=== PATIENT | male | born 1965 | race Caucasian/White ===

== ENCOUNTER 2020-10-24 09:23 | Day surgery (SDC) | payer BC, SELFPAY ==
[2020-10-18 13:22] VITALS: BMI 27.4
--- NOTE | 2020-10-21 10:15 | HO.ANESPROP2 ---
Documented by User: Stefani uGy 10/21/20 10:16 HPI - Anesthesia Eval Consult details Narrative: 54yo M for Colonoscopy PMFSH Past Medical History Medical History (Updated 10/18/20 @ 13:18 by Candice Austin) Anxiety History of diverticulosis History of kidney stones Hx of hiatal hernia Sciatica, unspecified side Family History Family History Father Diabetes Hypertension Mother Depression Paranoid schizophrenia Surgical History Surgical History (Updated 10/18/20 @ 13:17 by Candice Austin) History of appendectomy History of colectomy History of esophagogastroduodenoscopy (EGD) History of inguinal hernia repair Hx of colonoscopy Social History Social History (Updated 08/30/20 @ 09:43 by Lupe Gentile [facility]) Are you a primary rn progressive care unit to a significant other at home: No Do you presently have visiting nurse or other home services: No Alcohol intake: current Alcohol intake frequency: holidays/special occasions only Smoking Status: Former smoker Tobacco Type: Cigarette Smoking Quit Date: > 10 yrs Use of substances other than those prescribed or required for medical reasons: No Advance Directives: No Advance Directives Information Provided: No Advance Directives on File: No Recently lost weight without trying: No Meds Allergies Allergy/AdvReac Type Severity Reaction Status Date / Time gadobutrol [From GADAVIST] AdvReac Mild NAUSEA & Verified 10/18/20 13:22 VOMITING Home Medications Medication Instructions Recorded Confirmed Type hydroxyzine HCl 25 mg tablet 25 mg PO BEDTIME 08/30/20 10/18/20 History meloxicam 1 tab PO DAILY 10/18/20 10/24/20 History multivitamin 1 tab PO DAILY 10/18/20 10/18/20 History omeprazole magnesium [Prilosec OTC] 20 mg PO DAILY PRN 10/18/20 10/18/20 History Exam Exam Date and Time: October 21, 2020 1015 Height,Weight and Vital Signs: Height 5 ft 6 in Weight 77.111 kg Assessment and Plan Assessment Anesthesia Assessment: Chart Reviewed Documented by User: Shannan Kilgore 10/24/20 11:45 PMFSH Past Medical History Medical History (Updated 10/18/20 @ 13:18 by Candice Austin) Anxiety History of diverticulosis History of kidney stones Hx of hiatal hernia Sciatica, unspecified side Family History Family History Father Diabetes Hypertension Mother Depression Paranoid schizophrenia Family history of problems with anesthesia: No Surgical History Surgical History (Updated 10/18/20 @ 13:17 by Candice Austin) History of appendectomy History of colectomy History of esophagogastroduodenoscopy (EGD) History of inguinal hernia repair Hx of colonoscopy History of Problems with Anesthesia: No Social History Social History (Updated 08/30/20 @ 09:43 by Lupe Gentile [facility]) Are you a primary rn progressive care unit to a significant other at home: No Do you presently have visiting nurse or other home services: No Alcohol intake: current Alcohol intake frequency: holidays/special occasions only Smoking Status: Former smoker Tobacco Type: Cigarette Smoking Quit Date: > 10 yrs Use of substances other than those prescribed or required for medical reasons: No Advance Directives: No Advance Directives Information Provided: No Advance Directives on File: No Recently lost weight without trying: No Meds Allergies Allergy/AdvReac Type Severity Reaction Status Date / Time gadobutrol [From GADAVIST] AdvReac Mild NAUSEA & Verified 10/18/20 13:22 VOMITING Home Medications Medication Instructions Recorded Confirmed Type hydroxyzine HCl 25 mg tablet 25 mg PO BEDTIME 08/30/20 10/18/20 History meloxicam 1 tab PO DAILY 10/18/20 10/24/20 History multivitamin 1 tab PO DAILY 10/18/20 10/18/20 History omeprazole magnesium [Prilosec OTC] 20 mg PO DAILY PRN 10/18/20 10/18/20 History Exam Height,Weight and Vital Signs: Vital Signs Temp Pulse Resp BP Pulse Ox 10/24/20 11:26 97 F 77 16 103/64 99 10/24/20 10:18 97.4 F 76 18 136/99 H 100 Airway Mallampati Class: II TM Dist: >3cm Neck ROM: Full Loose/Missing/Broken Teeth: Yes (Bottom left) Heart: RRR Lungs: CTAB Assessment and Plan Assessment Anesthesia Assessment: Anesthesia Plan Discussed and Chart Reviewed Final Anesthetic Review NPO: Yes ASA Class: II Final Preanesthetic Review: No Changes in Pt Med Stat, Meds/Allgs Chart Reviewed, Consent Obtained/Reviewed and Anes Risks/Benef Reviewed Patient Risk: Low Procedure Risk: Low Assessment/Block/Sedation in SS: Assess/Block/Sedation-SS Anesthetic Plan Anesthetic Plan: MAC: Disposition: Standard PACU
[2020-10-24 10:18] VITALS: BP 136/99; PULSE 76; RESP 18; TEMP 36.3; O2SAT 100
[2020-10-24] MEDS: Lactated Ringers 1,000 ML 100 ML IVCONT (10:21)
[2020-10-24 11:26] VITALS: BP 103/64; PULSE 77; RESP 16; TEMP 36.1; O2SAT 99
--- NOTE | 2020-10-24 11:28 | PM.OP ---
Brief Operative Note Date of Service: 10/24/20 Pre-op diagnosis: Screening Post-op diagnosis: other (Diverticulosis, Internal hemorrhoids) Procedure: Colonoscopy to cecum and TI Surgeon: Juan Luis Dominguez Anesthesia: MAC Estimated blood loss (mL): 0 Pathology: none sent Condition: stable Disposition: PACU
[2020-10-24 11:41] VITALS: BP 113/74; PULSE 64; RESP 16; TEMP 36.1; O2SAT 99
--- NOTE | 2020-10-24 11:46 | OP_ITS ---
SURGEON: Juan Luis Dominguez MD INDICATIONS: The patient presents for evaluation of colorectal cancer screening, family history of colon cancer. Full consent has been obtained from him for this, including risks of bleeding and perforation. PREOPERATIVE DIAGNOSIS: POSTOPERATIVE DIAGNOSIS: PROCEDURE PERFORMED: Colonoscopy to cecum and terminal ileum. ESTIMATED BLOOD LOSS: COMPLICATIONS: ANESTHESIA: Monitored anesthesia care. ASSISTANTS: SPECIMENS: PREOPERATIVE DIAGNOSES: Colorectal cancer screening and family history of colon cancer. POSTOPERATIVE DIAGNOSES: Colorectal cancer screening and family history of colon cancer, diverticulosis and small internal hemorrhoids. DESCRIPTION OF PROCEDURE: The patient was placed in the left lateral decubitus position. The digital rectal exam revealed no abnormalities. The Olympus video pediatric colonoscope was entered into the rectum and advanced easily to the cecum. Once in the cecum, I did identify normal-appearing cecal pouch with appendiceal orifice and a normal-appearing ileocecal valve. The terminal ileum was cannulated and appeared normal. The scope was withdrawn back in the colon. The entire cecum and ileocecal valve appeared normal. The scope was slowly withdrawn assessing all mucosal surfaces carefully. Preparation was excellent. I did not visualize any sign of polyps, colitis, nor angiodysplasia. There were occasional diverticula noted in the ascending and transverse colon. The anastomosis from his previous surgery was seen at 20 cm and appeared normal. In the rectum, scope was retroflexed visualizing small internal hemorrhoids, but no other pathology. The rectal mucosa appeared normal. Scope was straightened and withdrawn from the patient. He tolerated the procedure well and was returned to the recovery area in stable condition. IMPRESSION: 1. Mild diverticulosis. 2. Normal anastomosis. 3. Small internal hemorrhoids. PLAN: Given the patient's family history of his brother having had colon cancer in his 50s, I would recommend a repeat colonoscopy in 5 years. He will otherwise see me on a p.r.n. basis. MD AGUSTÍN Correia/JAZMÍN / [id number]
--- NOTE | 2020-10-24 12:15 | HO.POSTANES ---
Post Anesthesia Evaluation Post Anesthesia Evaluation Vital Signs: Vital Signs Temp Pulse Resp BP Pulse Ox 10/24/20 11:41 97 F 64 16 113/74 99 10/24/20 11:26 97 F 77 16 103/64 99 10/24/20 10:18 97.4 F 76 18 136/99 H 100 Anesthesia: Monitored Mental Status: Awake Pain Control: Satisfactory Nausea/Vomiting: None Hydration: Adequate Anesthesia-Related Issues: No Anes. Related Issues
== END 2020-10-24 12:30 | disposition home or self-care (01) ==
PROVIDERS: PCP Internal Medicine; Visit Provider Internal Medicine
PROC: 0DJD8ZZ Inspection of Lower Intestinal Tract, Via Natural or Artificial Opening Endoscopic (ICD-10-PCS; CPT 45378; principal; 2020-10-24 10:40)
DX: Z12.11 Encounter for screening for malignant neoplasm of colon (principal); Z80.0 Family history of malignant neoplasm of digestive organs; K57.30 Diverticulosis of large intestine without perforation or abscess without bleeding; K64.8 Other hemorrhoids; K21.9 Gastro-esophageal reflux disease without esophagitis; Z87.19 Personal history of other diseases of the digestive system; Z90.49 Acquired absence of other specified parts of digestive tract; Z98.0 Intestinal bypass and anastomosis status; Z79.899 Other long term (current) drug therapy; Z87.891 Personal history of nicotine dependence; Z88.8 Allergy status to other drugs, medicaments and biological substances
CPT/HCPCS: 45378

== ENCOUNTER 2021-05-12 07:57 | Outpatient (REF) | payer BC, SELFPAY ==
[2021-05-12 08:35] LABS: MANUAL DIFF FLAG NO
[2021-05-12 08:43] LABS: Basophils Percent Auto 0.6 % (0-2); Eosinophils Absolute Auto 0.2 X10*3/uL (0.0-0.4); Eosinophils Percent Auto 3.1 % (0-4); Hematocrit 38.3 % (42-52); Hemoglobin 13.1 g/dl (14.0-18.0); Imm Gran Abs Auto 0.01 X10*3/uL (0.00-0.03); Imm Gran Pct Auto 0.1 % (0.0-0.4); Immature Retic Fraction 12.7 % (2.3-13.4); Lymphocytes Absolute Auto 2.7 X10*3/uL (1.2-4.9); Lymphocytes Percent Auto 39.5 % (20-40); Mean Corpuscular HGB Conc 34.2 g/dl (31.0-36.0); Mean Corpuscular Hemoglobin 29.3 pg (27.0-33.0); Mean Corpuscular Volume 85.7 fL (80-98); Monocytes Absolute Auto 0.6 X10*3/uL (0.1-1.2); Monocytes Percent Auto 8.3 % (2-11); Neutrophils Absolute Auto 3.3 X10*3/uL (2.0-8.3); Neutrophils Percent Auto 48.4 % (45-73); Platelet Count 240 X10*3/uL (160-400); Red Blood Count 4.47 X10*6/uL (4.60-5.80); Red Cell Distribution Width 12.6 % (11.0-16.0); Retic HGB Equivalent 34.3 pg (30.0-35.0); Reticulocyte Percent 1.7 % (0.5-1.8); Reticulocytes Absolute 0.074 X10*6/uL (0.026-0.095); White Blood Count 6.7 X10*3/uL (4.8-10.8)
[2021-05-12 09:18] LABS: Alanine Aminotransferase 25 U/L (0-40); Albumin Level 4.3 g/dL (3.5-5.0); Alkaline Phosphatase 57 U/L (39-117); Anion Gap 11 (12-20); Aspartate Amino Transferase 20 U/L (5-37); Bilirubin Total 0.9 mg/dL (0.0-1.0); Blood Urea Nitrogen 15 mg/dL (9-16); Carbon Dioxide 25 mmol/L (22-29); Chloride 108 mmol/L (96-108); Cholesterol 139 mg/dL; Estimated Glomerular Filt Rate > 60; Glucose Random 97 mg/dL (60-115); HDL Cholesterol 42 mg/dL; Iron 100 mcg/dL (45-160); LDL Cholesterol Calculated 78 mg/dl; Potassium 4.4 mmol/L (3.3-5.1); Sodium 140 mmol/L (135-145); Total Protein 6.7 g/dL (6.5-8.0); Triglycerides 98 mg/dL
[2021-05-12 09:27] LABS: Percent Iron Saturation 35 % (15-50); Total Iron Binding Capacity 289 mcg/dL (228-428); Unsaturated Iron Binding 189 ug/dL
[2021-05-12 09:41] LABS: Ferritin 264 ng/mL (20-250); Free T4 (Free Thyroxine) 0.84 ng/dL (0.71-1.85); Prostate Specific Antigen Scr 0.44 ng/mL (<0.05-4.0); Thyroid Stimulating Hormone 1.11 uIU/mL (0.32-4.0)
[2021-05-13 14:54] LABS: Folate 17.1 ng/mL (> or = 4.0); Vitamin B12 423 pg/mL (200-900)
== END 2021-05-12 07:58 | disposition home or self-care (01) ==
LOC: HO.LAB 07:57
PROVIDERS: PCP Internal Medicine; Visit Provider Internal Medicine
DX: F41.1 Generalized anxiety disorder (principal); E78.00 Pure hypercholesterolemia, unspecified; Z12.5 Encounter for screening for malignant neoplasm of prostate
CPT/HCPCS: 36415; 80053; 80061; 82607; 82728; 82746; 83540; 84153; 84439; 84443; 85025; 85045

== ENCOUNTER 2022-02-23 09:58 | Outpatient (REF) | payer BC, SELFPAY ==
--- NOTE | ~2022-02-23 | XR_ITS ---
EXAMINATION: XR CHEST AND LEFT RIBS CLINICAL INFORMATION: Localized swelling, mass and lump left upper limb. COMPARISON: Chest 07/22/2016. TECHNIQUE: 3 views of the left ribs were obtained. FINDINGS: The lungs are well-expanded and clear of acute process. The heart size and pulmonary vascularity is normal. Multiple views left ribs reveal no visible fracture or bony abnormality. The soft tissues are normal. XR/XR ribs LT min 3V w CXR1V IMPRESSION: Unremarkable chest exam. Unremarkable left rib series. No visible acute fracture or bony abnormality.
== END 2022-02-23 09:59 | disposition home or self-care (01) ==
LOC: HO.XRAY 09:58
PROVIDERS: PCP Internal Medicine; Visit Provider Internal Medicine
DX: R22.32 Localized swelling, mass and lump, left upper limb (principal)
CPT/HCPCS: 71101

== ENCOUNTER 2022-03-13 13:44 | Outpatient (REF) | payer BC, SELFPAY ==
--- NOTE | ~2022-03-13 | US_ITS ---
EXAMINATION: US EXTREMITY, NON-VASCULAR. CLINICAL INFORMATION: Localized swelling, mass and lump, left upper limb. Status post Covid booster chart. COMPARISON: None TECHNIQUE: Limited ultrasound imaging through the left upper extremity was performed. FINDINGS: There are multiple small left axillary lymph nodes seen with slightly thickened cortex. The measurements are suboptimal however, 1 of the 2 lymph nodes measures 1.6 x 1.1 x 2.0 cm and a 2nd lymph node measures 1.4 x 0.4 x 2.8 cm. The soft tissues are normal. US/US extremity nonvascular IMPRESSION: Slightly prominent left axillary lymph nodes with thickened cortex is seen. They are not atypical in appearance however, typical appearance of lymph nodes have been distorted due to thickened cortex. Recommend follow-up in 6 weeks to 3 months.
== END 2022-03-13 13:45 | disposition home or self-care (01) ==
LOC: HO.US 13:44
PROVIDERS: PCP Internal Medicine; Visit Provider Internal Medicine
DX: R22.32 Localized swelling, mass and lump, left upper limb (principal)
CPT/HCPCS: 76882

== ENCOUNTER 2022-06-14 08:43 | Outpatient (REF) | payer BC, SELFPAY ==
--- NOTE | ~2022-06-14 | US_ITS ---
EXAMINATION: US EXTREMITY NON-VASCULAR CLINICAL INFORMATION: Left axillary mass palpated by the patient. COMPARISON: None TECHNIQUE: Limited ultrasound imaging through the left axilla was performed. FINDINGS: There is a linear hypoechoic area in the left axilla without any fatty hilum or increased vascularity. Similar findings are seen in the right axilla with a linear hypoechoic area. There are no lymph nodes seen at this time in either axillae. US/US extremity nonvascular IMPRESSION: Hypoechoic area in the left axilla corresponding to the palpable area is likely a thick scar or thick soft tissue. Similar findings are seen in the right axilla. No lymph nodes are seen in either axillae.
== END 2022-06-14 08:44 | disposition home or self-care (01) ==
LOC: HO.HMGCX 08:43
PROVIDERS: PCP Internal Medicine; Visit Provider Internal Medicine
DX: R22.32 Localized swelling, mass and lump, left upper limb (principal)
CPT/HCPCS: 76882

== ENCOUNTER 2022-10-11 08:25 | Outpatient (REF) | payer OTHER, SELFPAY ==
[2022-10-11 08:36] LABS: MANUAL DIFF FLAG NO
[2022-10-11 08:59] LABS: Basophils Absolute Auto 0.1 X10*3/uL (0.0-0.2); Basophils Percent Auto 0.7 % (0-2); Eosinophils Absolute Auto 0.1 X10*3/uL (0.0-0.4); Eosinophils Percent Auto 1.5 % (0-4); Hemoglobin 13.5 g/dl (14.0-18.0); Imm Gran Abs Auto 0.01 X10*3/uL (0.00-0.03); Imm Gran Pct Auto 0.1 % (0.0-0.4); Immature Retic Fraction 10.4 % (2.3-13.4); Lymphocytes Absolute Auto 2.5 X10*3/uL (1.2-4.9); Mean Corpuscular HGB Conc 33.8 g/dl (31.0-36.0); Mean Corpuscular Hemoglobin 29.5 pg (27.0-33.0); Mean Corpuscular Volume 87.3 fL (80.0-98.0); Mean Platelet Volume 10.6 fL (9.4-12.4); Monocytes Absolute Auto 0.4 X10*3/uL (0.1-1.2); Monocytes Percent Auto 6.4 % (2-11); Neutrophils Absolute Auto 3.6 x10*3/uL (2.0-8.3); Neutrophils Percent Auto 53.3 % (45-73); Platelet Count 273 X10*3/uL (160-400); Red Blood Count 4.58 X10*6/uL (4.60-5.80); Red Cell Distribution Width 12.7 % (11.0-16.0); Retic HGB Equivalent 34.4 pg (30.0-35.0); Reticulocyte Percent 1.4 % (0.5-1.8); Reticulocytes Absolute 0.065 X10*6/uL (0.026-0.095); White Blood Count 6.7 X10*3/uL (4.8-10.8)
[2022-10-11 09:19] LABS: Anion Gap 12 (12-20)
[2022-10-11 09:20] LABS: Alanine Aminotransferase 25 U/L (0-40); Albumin Level 4.3 g/dL (3.5-5.0); Alkaline Phosphatase 57 U/L (39-117); Aspartate Amino Transferase 18 U/L (5-37); Bilirubin Total 0.6 mg/dL (0.0-1.0); Blood Urea Nitrogen 15 mg/dL (9-16); Calcium 9.3 mg/dL (8.4-10.2); Carbon Dioxide 27 mmol/L (22-29); Chloride 104 mmol/L (96-108); Cholesterol 173 mg/dL; Estimated Glomerular Filt Rate > 60; Glucose Random 104 mg/dL (60-115); HDL Cholesterol 47 mg/dL; Iron 120 mcg/dL (45-160); LDL Cholesterol Calculated 96 mg/dl; Percent Iron Saturation 40 % (15-50); Sodium 139 mmol/L (135-145); Total Iron Binding Capacity 302 mcg/dL (228-428); Total Protein 6.8 g/dL (6.5-8.0); Triglycerides 152 mg/dL; Unsaturated Iron Binding 182 ug/dL
[2022-10-11 09:46] LABS: Ferritin 343 ng/mL (20-250); Free T4 (Free Thyroxine) 0.92 ng/dL (0.71-1.85); Prostate Specific Antigen Scr 0.54 ng/mL (<0.05-4.0); Thyroid Stimulating Hormone 1.18 uIU/mL (0.32-4.0)
[2022-10-11 09:51] LABS: Folate 14.3 ng/mL (> or = 4.0); Vitamin B12 550 pg/mL (200-900)
[2022-10-17 17:43] LABS: Testosterone, Total 399 ng/dL (250-1100)
== END 2022-10-11 08:26 | disposition home or self-care (01) ==
LOC: HO.LAB 08:25
PROVIDERS: PCP Internal Medicine; Visit Provider Internal Medicine
DX: Z12.5 Encounter for screening for malignant neoplasm of prostate (principal); E78.00 Pure hypercholesterolemia, unspecified; K21.9 Gastro-esophageal reflux disease without esophagitis; D64.9 Anemia, unspecified
CPT/HCPCS: 36415; 80053; 80061; 82607; 82728; 82746; 83540; 84153; 84403; 84439; 84443; 85025; 85045

== ENCOUNTER 2023-08-05 16:35 | Outpatient (AMB) | payer OTHER, SELFPAY ==
[2023-08-05 16:44] VITALS: BP 136/74; PULSE 70; O2SAT 98; BMI 28.6
--- NOTE | 2023-08-05 16:44 | MHC.PC.OV ---
Vital Signs 08/05/23 16:44 Height 5 ft 6 in Weight 177 lb BMI 28.6 BP 136/74 Blood Pressure Location Lt brachial Position Sitting Pulse 70 Pulse Source Pulse Oximeter Pulse Oximetry (%) 98 Oxygen Delivery Method Room Air Intake Visit Reasons: Blood pressure elevation,impaired glucosetolerance Allergies gadobutrol [From GADAVIST] Adverse Reaction (Mild, Verified 01/28/23 16:43) NAUSEA & VOMITING Tobacco use date assessed: 10/31/22 Dental Screening Dental Screen Date: 08/05/23 Did you have a dental visit in the last 12 months?: Yes Did you have a dental problem in the last 6 months where you did not have access to dental care?: No Was dental information given to patient?: Patient has dentist HPI Blood pressure elevation,impaired glucosetolerance HPI Details 57-year-old overweight male with a history of generalized anxiety disorder GERD anemia last seen in January 2023 having an elevated blood pressure and has was advised to follow-up today patient. BP has been good 136/70 PFSH Medical History Hx of hiatal hernia History of diverticulosis History of kidney stones Anxiety Sciatica, unspecified side Surgical History Hx of colonoscopy History of esophagogastroduodenoscopy (EGD) History of colectomy History of inguinal hernia repair History of appendectomy Family History Father Diabetes Hypertension Mother Depression Paranoid schizophrenia Mental health disorder Brother Colon cancer, Onset Age: 56 Other Substance use disorder Social History Housing: House Are you a primary critical care clinical nurse specialist to a significant other at home: No Do you presently have visiting nurse or other home services: No Alcohol intake: current Alcohol intake frequency: holidays/special occasions only Patient Tobacco Use Status: Former Tobacco user Tobacco use type: Cigarette Years Smoked: stopped 1999 e-Cigarette/Vaping Use: Never Used Second Hand Smoke Exposure: No service: No Current occupational status: employed Current occupational exposures/hazards: No Cognitive needs: No Hearing needs: No Vision needs: Yes (Glasses) Questionnaire PHQ-9 Over the last 2 weeks, how often have you been bothered by any of the following problems? 1. Little interest or pleasure in doing things: not at all 2. Feeling down, depressed, or hopeless: not at all 3. Trouble falling or staying asleep, or sleeping too much: not at all 4. Feeling tired or having little energy: not at all 5. Poor appetite or overeating: not at all 6. Feeling bad about yourself - or that you are a failure or have let yourself or your family down: not at all 7. Trouble concentrating on things, such as reading the newspaper or watching television: not at all 8. Moving or speaking so slowly that other people could have noticed. Or the opposite - being so fidgety or restless that you have been moving around a lot more than usual: not at all 9. Thoughts that you would be better off or of hurting yourself in some way: not at all Total score: 0 Depression Screening Interpretation: Negative Depression Screening Done: Yes Source: Developed by Drs. Juan Luis Melton, Varghese Zacarias and colleagues, with an educational anu from [employer]. Thrive Questionnaire Date Thrive assessed: 10/31/22 AUDIT C Alcohol Use Questionnaire (AUDIT-C) 1. How often do you have a drink containing alcohol?: Monthly or less 2. How many drinks containing alcohol do you have on a typical day when you are drinking?: 1 or 2 3. How often do you have six or more drinks on one occasion?: Never Total Score: 1 ELISSA-7 AMB Questionnaire ELISSA-7 Date ELISSA - 7 assessed: 10/31/22 Source: Developed by Drs. Juan Luis Melton, Varghese Zacarias and colleagues, with an educational anu from [employer]. Physical exam (Primary Care) Vital Signs: Oxygen Delivery Method Room Air 08/05/23 16:44 Tobacco/Smoking Status: Tobacco use Status Tobacco use date assessed 10/31/22 08/05/23 16:46 Patient Tobacco Use Status Former Tobacco user 08/05/23 16:46 Tobacco use type Cigarette 08/05/23 16:46 e-Cigarette/Vaping Use Never Used 08/05/23 16:46 PHQ-9: PHQ-9 Score PHQ-9: Total score 0 11/06/23 16:46 Depression Screening Interpretation: Negative Thrive Assessment: Date of Thrive Assessment Date Thrive assessed 10/31/22 08/05/23 16:46 Const General: alert; No acute distress Eyes Conjunctivae: conjunctivae normal Resp Auscultation: clear to auscultation bilaterally Cardio Rate: regular rate Rhythm: regular rhythm GI Inspection: Yes normal to inspection Extrem General: Yes normal to inspection and No edema Assessment and Plan Assessment & Plan (1) ELISSA (generalized anxiety disorder): Comment: decline counselling 01/2022 Code(s): F41.1 - Generalized anxiety disorder Plan: Continue with present medication (2) GERD (gastroesophageal reflux disease): Code(s): K21.9 - Gastro-esophageal reflux disease without esophagitis Plan: Avoid the foods that causes that usually spicy foods, tomato products, juices, coffee, soda and foods that your sensitive to. After eating do not lie down, allow 3-4 hours before in lie down. And keep the head of bed above 30 degrees to avoid the acid from going up. (3) Overweight (BMI 25.0-29.9): Code(s): E66.3 - Overweight Plan: Diet and exercise (4) Blood pressure elevated without history of HTN: Code(s): R03.0 - Elevated blood-pressure reading, without diagnosis of hypertension (5) Impaired fasting blood sugar: Code(s): R73.01 - Impaired fasting glucose Plan: Decrease the amount of carbohydrate intake, pasta, bread, rice and potatoes are all sugar and that is aside from all the sweet stuff, remember that fruits are good but they are Sweet also. Orders: Orders Complete Blood Count Auto Diff 2 Months F41.1 - Generalized anxiety disorder Comprehensive Met. Panel 2 Months F41.1 - Generalized anxiety disorder Hemoglobin A1c 2 Months R73.01 - Impaired fasting glucose Free T4 (Free Thyroxine) 2 Months F41.1 - Generalized anxiety disorder Thyroid Stimulating Hormone 2 Months F41.1 - Generalized anxiety disorder Vitamin B12 and Folate 2 Months F41.1 - Generalized anxiety disorder Lipid Panel 2 Months E78.00 - Pure hypercholesterolemia, unspecified, F41.1 - Generalized anxiety disorder Prostate Specific Antigen Scr 2 Months F41.1 - Generalized anxiety disorder Coding Level of Care Code Est Pt Level 4 (62215) Diagnoses ELISSA (generalized anxiety disorder) F41.1 GERD (gastroesophageal reflux disease) K21.9 Overweight (BMI 25.0-29.9) E66.3 Blood pressure elevated without history of HTN R03.0 Impaired fasting blood sugar R73.01 Additional Codes PHQ-9 - 88842 - PHQ-9 Billing: ([id number])
== END 2023-08-05 17:46 | disposition home or self-care (01) ==
PROVIDERS: Visit Provider Internal Medicine
DX: F41.1 Generalized anxiety disorder (principal); K21.9 Gastro-esophageal reflux disease without esophagitis; E66.3 Overweight; R03.0 Elevated blood-pressure reading, without diagnosis of hypertension; R73.01 Impaired fasting glucose
CPT/HCPCS: 99214

== ENCOUNTER 2023-09-21 07:52 | Outpatient (REF) | payer OTHER, SELFPAY ==
[2023-09-21 08:02] LABS: MANUAL DIFF FLAG NO
[2023-09-21 09:16] LABS: Basophils Absolute Auto 0.1 X10*3/uL (0.0-0.2); Basophils Percent Auto 0.7 % (0-2); Eosinophils Absolute Auto 0.2 X10*3/uL (0.0-0.4); Eosinophils Percent Auto 2.9 % (0-4); Hematocrit 39.4 % (42.0-52.0); Hemoglobin 13.6 g/dl (14.0-18.0); Imm Gran Abs Auto 0.01 X10*3/uL (0.00-0.03); Imm Gran Pct Auto 0.1 % (0.0-0.4); Lymphocytes Absolute Auto 3.2 X10*3/uL (1.2-4.9); Lymphocytes Percent Auto 43.8 % (20-40); Mean Corpuscular HGB Conc 34.5 g/dl (31.0-36.0); Mean Corpuscular Hemoglobin 29.5 pg (27.0-33.0); Mean Corpuscular Volume 85.5 fL (80.0-98.0); Mean Platelet Volume 10.6 fL (9.4-12.4); Monocytes Absolute Auto 0.6 X10*3/uL (0.1-1.2); Monocytes Percent Auto 7.6 % (2-11); Neutrophils Absolute Auto 3.2 x10*3/uL (2.0-8.3); Neutrophils Percent Auto 44.9 % (45-73); Platelet Count 296 X10*3/uL (160-400); Red Blood Count 4.61 X10*6/uL (4.60-5.80); Red Cell Distribution Width 12.6 % (11.0-16.0); White Blood Count 7.2 X10*3/uL (4.8-10.8)
[2023-09-21 09:21] LABS: Estimated Average Glucose 111 mg/dL; Hemoglobin A1c % 5.5 % (<6.0)
[2023-09-21 09:44] LABS: Alanine Aminotransferase 24 U/L (0-40); Albumin Level 4.2 g/dL (3.5-5.0); Alkaline Phosphatase 61 U/L (39-117); Anion Gap 12 (12-20); Aspartate Amino Transferase 25 U/L (5-37); Bilirubin Total 0.4 mg/dL (0.0-1.0); Blood Urea Nitrogen 16 mg/dL (9-16); Calcium 9.1 mg/dL (8.4-10.2); Carbon Dioxide 25 mmol/L (22-29); Chloride 107 mmol/L (96-108); Cholesterol 155 mg/dL (<200); Estimated Glomerular Filt Rate > 60; Glucose Random 99 mg/dL (60-115); HDL Cholesterol 40 mg/dL (>40); LDL Cholesterol Calculated 82 mg/dL (<100); Sodium 140 mmol/L (135-145); Total Protein 7.2 g/dL (6.5-8.0); Triglycerides 166 mg/dL (<150)
[2023-09-21 10:02] LABS: Free T4 (Free Thyroxine) 0.82 ng/dL (0.71-1.85); Thyroid Stimulating Hormone 0.65 uIU/mL (0.32-4.0)
[2023-09-21 10:15] LABS: Folate 14.1 ng/mL (> or = 4.0); Prostate Specific Antigen Scr 0.35 ng/mL (<0.05-4.0); Vitamin B12 639 pg/mL (200-900)
== END 2023-09-21 07:53 | disposition home or self-care (01) ==
LOC: HO.LAB 07:52
PROVIDERS: PCP Internal Medicine; Visit Provider Internal Medicine
DX: Z12.5 Encounter for screening for malignant neoplasm of prostate (principal); R73.01 Impaired fasting glucose; E78.00 Pure hypercholesterolemia, unspecified; F41.1 Generalized anxiety disorder
CPT/HCPCS: 36415; 80053; 80061; 82607; 82746; 83036; 84153; 84439; 84443; 85025

== ENCOUNTER 2023-11-11 17:14 | Outpatient (AMB) | payer OTHER, SELFPAY ==
[2023-11-11 17:20] VITALS: BP 166/80; BMI 28.4
--- NOTE | 2023-11-11 17:20 | A.OFFPC_ITS ---
Vital Signs 11/11/23 17:20 11/11/23 17:29 Height 5 ft 6 in Weight 176 lb BMI 28.4 BP 166/80 H 150/80 H Blood Pressure Location Lt brachial Lt brachial Position Sitting Sitting Intake Visit Reasons: Annual Exam Intake Note: Patient here for a physical exam Global Recruiter Required: No Accompanied by: Self / Same As Patient Allergies gadobutrol [From GADAVIST] Adverse Reaction (Mild, Verified 11/11/23 17:21) NAUSEA & VOMITING Medication List - Last Reconciled 11/11/23 by Rohan Wynn MD citalopram 5 mg (1/2 x 10 mg) PO DAILY 90 days meloxicam 15 mg PO DAILY 90 days multivitamin 1 tab PO DAILY omeprazole magnesium (Prilosec OTC) 20 mg PO DAILY PRN Tobacco use date assessed: 11/11/23 Dental Screening Dental Screen Date: 11/11/23 Did you have a dental visit in the last 12 months?: Yes Did you have a dental problem in the last 6 months where you did not have access to dental care?: No Was dental information given to patient?: Patient has dentist HPI Annual Exam HPI Details 57-year-old overweight male with a histo ry of impaired glucose tolerance GERD and generalized anxiety disorder last seen in July 2023. At that time noted to have an elevated blood pressure and advised to follow-up. Patient's colonoscopy is up-to-date. [facility] Medical History Hx of hiatal hernia History of diverticulosis History of kidney stones Anxiety Sciatica, unspecified side Surgical History Hx of colonoscopy History of esophagogastroduodenoscopy (EGD) History of colectomy History of inguinal hernia repair History of appendectomy Family History Father Diabetes Hypertension Mother Depression Paranoid schizophrenia Mental health disorder Brother Colon cancer, Onset Age: 56 Other Substance use disorder Social History (Updated 11/11/23 @ 17:31 by Rohan Wynn MD) Housing: House Are you a primary animal caretaker to a significant other at home: No Do you presently have visiting nurse or other home services: No Alcohol intake: current Alcohol intake frequency: holidays/special occasions only Comment: once Q 3 months 2 beers Patient Tobacco Use Status: Former Tobacco user Tobacco use type: Cigarette Years Smoked: stopped 1999 e-Cigarette/Vaping Use: Never Used Second Hand Smoke Exposure: No service: No Current occupational status: employed Current occupational exposures/hazards: No Cognitive needs: No Hearing needs: No Vision needs: Yes (Glasses) Questionnaire PHQ-9 Over the last 2 weeks, how often have you been bothered by any of the following problems? 1. Little interest or pleasure in doing things: not at all 2. Feeling down, depressed, or hopeless: not at all 3. Trouble falling or staying asleep, or sleeping too much: not at all 4. Feeling tired or having little energy: not at all 5. Poor appetite or overeating: not at all 6. Feeling bad about yourself - or that you are a failure or have let yourself or your family down: not at all 7. Trouble concentrating on things, such as reading the newspaper or watching television: not at all 8. Moving or speaking so slowly that other people could have noticed. Or the opposite - being so fidgety or restless that you have been moving around a lot more than usual: not at all 9. Thoughts that you would be better off or of hurting yourself in some way: not at all Total score: 0 Depression Screening Interpretation: Negative Depression Screening Done: Yes Source: Developed by Drs. Juan Luis Melton, Jessica Acosta, Varghese Verma and colleagues, with an educational anu from [employer]. Thrive Questionnaire Date Thrive assessed: 11/11/23 I am a: Patient What is your living situation today?: I have a steady place to live Within the past 12 months, did the food you bought not last and you didn't have the money to get more?: Never true Within the past 12 months, did you worry whether your food would run out before you got money to buy more?: Never true Do you have trouble paying for medicines?: No Do you have trouble getting transportation to medical appointments?: No Do you have trouble paying your heating and electricity bill?: No Do you have trouble taking care of your child, family member or friend?: No Do you have trouble with day-to-day activities such as bathing, preparing meals, shopping, managing finances, etc.?: No Are you currently unemployed and looking for a job?: No Are you interested in more education?: No Please select the resources that you would like help with: None Currently or been in a relationship where the following occur: no concerns reported THRIVE Score: 0 AUDIT C Alcohol Use Questionnaire (AUDIT-C) 1. How often do you have a drink containing alcohol?: Monthly or less 2. How many drinks containing alcohol do you have on a typical day when you are drinking?: 1 or 2 3. How often do you have six or more drinks on one occasion?: Never Total Score: 1 ELISSA-7 AMB Questionnaire ELISSA-7 Date ELISSA - 7 assessed: 11/11/23 Feeling nervous, anxious, or on edge: 0 = Not at all Not being able to stop or control worryin = Not at all Worrying too much about different things: 0 = Not at all Trouble relaxin = Not at all Being so restless that it is hard to sit still: 0 = Not at all Becoming easily annoyed or irritable: 0 = Not at all Feeling afraid as if something awful might happen: 0 = Not at all Total ELISSA-7 score (0-4 normal; 5-9 mild; 10-14 moderate; 15-21 severe): 0 Source: Developed by Drs. Juan Luis Melton, Jessica Acosta, Varghese Verma and colleagues, with an educational anu from [employer]. Review of Systems Const Denies poor appetite and Denies weakness Eyes Denies no additional complaints ENT Reports Normal hearing present, Denies dizziness, Denies nasal congestion, Denies tinnitus and Denies sore throat Card Denies chest pain, Denies syncope, Denies rapid heart rate and Denies dyspnea Resp Denies cough and Denies dyspnea GI Denies change in stool character, Reports constipation, Denies diarrhea, Denies nausea and Denies vomiting Denies dysuria and Denies urinary frequency Neuro Reports Normal hearing present, Denies confusion, Denies dizziness, Denies syncope and Denies weakness Psych Denies confusion Physical exam (Primary Care) Vital Signs: Last Vital Signs BP 166/80 H 11/11/23 17:20 BMI result Body Mass Index 28.4 Tobacco/Smoking Status: Tobacco use Status Tobacco use date assessed 10/31/22 11/11/23 17:20 Patient Tobacco Use Status Former Tobacco user 11/11/23 17:20 Tobacco use type Cigarette 11/11/23 17:20 e-Cigarette/Vaping Use Never Used 11/11/23 17:20 Depression Screening Interpretation: Negative Thrive Assessment: Date of Thrive Assessment Date Thrive assessed 10/31/22 11/11/23 17:20 Currently or been in a relationship where the following occur: no concerns reported Const General: No confusion Orientation/consciousness: No confusion HENMT Head: Yes normocephalic Ears: external ears normal and TM's normal bilaterally Face and sinus: Yes normal facial exam Mouth: moist mucous membranes Throat: Yes tonsils normal Eyes Conjunctivae: conjunctivae normal Pupils: Equal, round and reactive pupils present and Pupil accommodation reflex normal Direct Ophthalmoscopy: normal light reflex Neck Neck: No lymphadenopathy Thyroid: Thyroid normal Chest Chest palpation & inspection: normal inspection of the chest Resp Effort & Inspection: normal respiratory effort and no audible wheezes Auscultation: clear to auscultation bilaterally, no crackles, no wheezes and lung sounds not diminished Cardio Rate: regular rate Rhythm: regular rhythm Peripheral pulses: radial pulses present and dorsalis pedis present GI Other: guaiac negative prostate N Palpation (GI): no masses Auscultation: normal bowel sounds and normoactive bowel sounds Male General Exam: Yes normal external exam Skin General skin exam: no rashes or lesions noted Rashes: no rashes Neuro General: No confusion Cranial nerves: Yes Equal, round and reactive pupils present and Yes Normal hearing present Cognition (Neuro): normal cognition Gait exam (Neuro): Normal gait present Motor exam (neuro): 5/5 motor strength present throughout Deep tendon reflexes (DTR's): Right brachioradialis reflex intensity grade: 2+, Left brachioradialis reflex intensity grade: 2+, Right patellar reflex intensity grade: 2+ and Left patellar reflex intensity grade: 2+ Extrem General: No edema Assessment and Plan Assessment & Plan (1) Annual physical exam: Code(s): Z00.00 - Encounter for general adult medical examination without abnormal findings (2) Overweight (BMI 25.0-29.9): Code(s): E66.3 - Overweight Plan: Diet and exercise (3) GERD (gastroesophageal reflux disease): Code(s): K21.9 - Gastro-esophageal reflux disease without esophagitis Plan: Avoid the foods that causes that usually spicy foods, tomato products, juices, coffee, soda and foods that your sensitive to. After eating do not lie down, allow 3-4 hours before in lie down. And keep the head of bed above 30 degrees to avoid the acid from going up. (4) Blood pressure elevated without history of HTN: Code(s): R03.0 - Elevated blood-pressure reading, without diagnosis of hypertension Plan: Concern about the elevated blood pressure. Advised continue to monitor (5) Impaired fasting blood sugar: Code(s): R73.01 - Impaired fasting glucose Plan: Decrease the amount of carbohydrate intake, pasta, bread, rice and potatoes are all sugar and that is aside from all the sweet stuff, remember that fruits are good but they are Sweet also. (6) ELISSA (generalized anxiety disorder): Comment: decline counselling 01/2022 Code(s): F41.1 - Generalized anxiety disorder Plan: Continue with therapy presently. (7) Anemia: Comment: Hematology 2013 Low Testosterone Code(s): D64.9 - Anemia, unspecified Plan: Continue to monitor Coding Level of Care Code Est Pt Prev Care 40-64y(30139) Diagnoses Annual physical exam Z00.00 Overweight (BMI 25.0-29.9) E66.3 GERD (gastroesophageal reflux disease) K21.9 Blood pressure elevated without history of HTN R03.0 Impaired fasting blood sugar R73.01 ELISSA (generalized anxiety disorder) F41.1 Anemia D64.9 Additional Codes PHQ-9 - 72063 - PHQ-9 Billing: ([id number])
[2023-11-11 17:29] VITALS: BP 150/80
== END 2023-11-11 17:51 | disposition home or self-care (01) ==
PROVIDERS: Visit Provider Internal Medicine
DX: Z00.00 Encounter for general adult medical examination without abnormal findings (principal); E66.3 Overweight; K21.9 Gastro-esophageal reflux disease without esophagitis; R03.0 Elevated blood-pressure reading, without diagnosis of hypertension; R73.01 Impaired fasting glucose; F41.1 Generalized anxiety disorder; D64.9 Anemia, unspecified
CPT/HCPCS: 99396

== ENCOUNTER 2024-05-11 15:51 | Outpatient (AMB) | payer OTHER, SELFPAY ==
[2024-05-11 15:52] VITALS: BP 142/78; PULSE 70; O2SAT 98; BMI 28.9
--- NOTE | 2024-05-11 15:52 | A.OFFPC_ITS ---
Vital Signs 05/11/24 15:52 05/11/24 16:05 Height 5 ft 6 in Weight 81.193 kg BMI 28.9 BP 142/78 H 124/60 Blood Pressure Location Lt brachial Lt brachial Position Sitting Sitting Pulse 70 Pulse Source Pulse Oximeter Pulse Oximetry (%) 98 Oxygen Delivery Method Room Air Intake Visit Reasons: ELISSA/ tetanus Allergies gadobutrol [From GADAVIST] Adverse Reaction (Mild, Verified 05/11/24 15:52) NAUSEA & VOMITING Tobacco use date assessed: 11/11/23 Dental Screening Dental Screen Date: 11/11/23 HPI ELISSA/ tetanus HPI Details 58-year-old overweight male with GERD im paired glucose tolerance generalized anxiety disorder last seen in October heavy an elevated blood pressure. Patient is here for follow-up. Up-to-date with colonoscopy September 2020 [facility] Medical History Hx of hiatal hernia History of diverticulosis History of kidney stones Anxiety Sciatica, unspecified side Surgical History Hx of colonoscopy History of esophagogastroduodenoscopy (EGD) History of colectomy History of inguinal hernia repair History of appendectomy Family History Father Diabetes Hypertension Mother Depression Paranoid schizophrenia Mental health disorder Brother Colon cancer, Onset Age: 56 Other Substance use disorder Social History (Updated 11/11/23 @ 17:31 by Rohan Wynn MD) Housing: House Are you a primary care connector to a significant other at home: No Do you presently have visiting nurse or other home services: No Alcohol intake: current Alcohol intake frequency: holidays/special occasions only Comment: once Q 3 months 2 beers Patient Tobacco Use Status: Former Tobacco user Tobacco use type: Cigarette Years Smoked: stopped 1999 e-Cigarette/Vaping Use: Never Used Second Hand Smoke Exposure: No service: No Current occupational status: employed Current occupational exposures/hazards: No Cognitive needs: No Hearing needs: No Vision needs: Yes (Glasses) Questionnaire PHQ-9 Over the last 2 weeks, how often have you been bothered by any of the following problems? 1. Little interest or pleasure in doing things: not at all 2. Feeling down, depressed, or hopeless: not at all 3. Trouble falling or staying asleep, or sleeping too much: not at all 4. Feeling tired or having little energy: not at all 5. Poor appetite or overeating: not at all 6. Feeling bad about yourself - or that you are a failure or have let yourself or your family down: not at all 7. Trouble concentrating on things, such as reading the newspaper or watching television: not at all 8. Moving or speaking so slowly that other people could have noticed. Or the opposite - being so fidgety or restless that you have been moving around a lot more than usual: not at all 9. Thoughts that you would be better off or of hurting yourself in some way: not at all Total score: 0 Depression Screening Interpretation: Negative Depression Screening Done: Yes Source: Developed by Drs. Juan Luis Melton, Jessica Acosta, Varghese Verma and colleagues, with an educational anu from [employer]. Thrive Questionnaire Date Thrive assessed: 11/11/23 AUDIT C Alcohol Use Questionnaire (AUDIT-C) 1. How often do you have a drink containing alcohol?: Monthly or less 2. How many drinks containing alcohol do you have on a typical day when you are drinking?: 1 or 2 3. How often do you have six or more drinks on one occasion?: Never Total Score: 1 ELISSA-7 AMB Questionnaire ELISSA-7 Date ELISSA - 7 assessed: 11/11/23 Source: Developed by Drs. Juan Luis Melton, Jessica Acosta, Varghese Verma and colleagues, with an educational anu from [employer]. Physical exam (Primary Care) Vital Signs: Last Vital Signs Pulse 70 05/11/24 15:52 BP 124/60 05/11/24 16:05 Pulse Ox 98 05/11/24 15:52 Oxygen Delivery Method Room Air 05/11/24 15:52 BMI result Body Mass Index 28.9 Tobacco/Smoking Status: Tobacco use Status Tobacco use date assessed 11/11/23 05/11/24 15:56 Patient Tobacco Use Status Former Tobacco user 05/11/24 15:56 Tobacco use type Cigarette 05/11/24 15:56 e-Cigarette/Vaping Use Never Used 05/11/24 15:56 PHQ-9: PHQ-9 Score PHQ-9: Total score 0 05/11/24 16:06 Depression Screening Interpretation: Negative Thrive Assessment: Date of Thrive Assessment Date Thrive assessed 11/11/23 05/11/24 15:56 Const General: alert; No acute distress Eyes Conjunctivae: conjunctivae normal Resp Auscultation: clear to auscultation bilaterally Cardio Rate: regular rate Rhythm: regular rhythm GI Inspection: Yes normal to inspection Extrem General: Yes normal to inspection and No edema Immunizations Boostrix Tdap 2.5 Lf unit-8 mcg-5 Lf/0.5 mL intramuscular syringe Performing Provider: Rohan Wynn MD Performing Location: [facility] Administered by: LEANA Felix on 05/11/24 16:16 Dose Route Admin Location Dispensed Lot Number Expiration Date NDC Ventilating Expert 0.5 mL IM Left Deltoid 0.5 mL [id number] 05/16/26 21850-004-23 [employer] VIS Given Date VIS Provided VIS Publication Date 05/11/24 Single Vaccine 21 Eligibility Eligibility Date Funding Source Not [facility] Eligible 05/11/24 Private Assessment and Plan Assessment & Plan (1) Blood pressure elevated without history of HTN: Code(s): R03.0 - Elevated blood-pressure reading, without diagnosis of hypertension Plan: Continue to monitor blood pressure. BP is good , low salt diet (2) Impaired fasting blood sugar: Code(s): R73.01 - Impaired fasting glucose Plan: Decrease the amount of carbohydrate intake, pasta, bread, rice and potatoes are all sugar and that is aside from all the sweet stuff, remember that fruits are good but they are Sweet also. (3) Overweight (BMI 25.0-29.9): Code(s): E66.3 - Overweight Plan: Diet and exercise (4) GERD (gastroesophageal reflux disease): Code(s): K21.9 - Gastro-esophageal reflux disease without esophagitis Plan: Avoid the foods that causes that usually spicy foods, tomato products, juices, coffee, soda and foods that your sensitive to. After eating do not lie down, allow 3-4 hours before in lie down. And keep the head of bed above 30 degrees to avoid the acid from going up. (5) ELISSA (generalized anxiety disorder): Comment: decline counselling 01/2022 Code(s): F41.1 - Generalized anxiety disorder Plan: Continue with citalopram Orders: Orders Comprehensive Met. Panel 6 Months R73.01 - Impaired fasting glucose Vitamin B12 and Folate 6 Months R73.01 - Impaired fasting glucose Prostate Specific Antigen Scr 6 Months R73.01 - Impaired fasting glucose Ferritin 6 Months R73.01 - Impaired fasting glucose IRON PROFILE 6 Months R73.01 - Impaired fasting glucose Reticulocyte Count 6 Months R73.01 - Impaired fasting glucose UA w Microscopic 6 Months R73.01 - Impaired fasting glucose TDaP Immunization Today Z23 - Encounter for immunization Hemoglobin A1c 6 Months R73.01 - Impaired fasting glucose Free T4 (Free Thyroxine) 6 Months R73.01 - Impaired fasting glucose Complete Blood Count Auto Diff 6 Months R73.01 - Impaired fasting glucose Lipid Panel 6 Months E78.00 - Pure hypercholesterolemia, unspecified, R73.01 - Impaired fasting glucose Thyroid Stimulating Hormone 6 Months R73.01 - Impaired fasting glucose Medications: New Boostrix Tdap (diphth,pertus(acell),tetanus) 0.5 mL IM ONCE 0.5 mL 0RF NS Z23 - Encounter for immunization Coding Level of Care Code Est Pt Level 4 (83160) Diagnoses Blood pressure elevated without history of HTN R03.0 Impaired fasting blood sugar R73.01 Overweight (BMI 25.0-29.9) E66.3 GERD (gastroesophageal reflux disease) K21.9 ELISSA (generalized anxiety disorder) F41.1 Additional Codes PHQ-9 - 49847 - PHQ-9 Billing: ([id number])
[2024-05-11 16:05] VITALS: BP 124/60
== END 2024-05-11 16:15 | disposition home or self-care (01) ==
PROVIDERS: PCP Internal Medicine; Visit Provider Internal Medicine
DX: R03.0 Elevated blood-pressure reading, without diagnosis of hypertension (principal); R73.01 Impaired fasting glucose; E66.3 Overweight; Z23 Encounter for immunization; K21.9 Gastro-esophageal reflux disease without esophagitis; F41.1 Generalized anxiety disorder
CPT/HCPCS: 90471; 90715; 99214

== ENCOUNTER 2024-09-09 09:13 | Outpatient (AMB) | payer OTHER, SELFPAY ==
--- NOTE | 2024-09-09 09:16 | A.OFFPC_ITS ---
Vital Signs 09/09/24 09:17 Height 5 ft 6 in Weight 181 lb BMI 29.2 BP 140/76 H Blood Pressure Location Lt brachial Position Sitting Pulse 66 Pulse Source Pulse Oximeter Pulse Oximetry (%) 99 Oxygen Delivery Method Room Air Intake Visit Reasons: Lower back pain Intake Note: Patient is here to follow up on Lower back pain on the right side. Telecommunications Operator Required: No Provider Network Analyst: Not Required per policy Accompanied by: Self / Same As Patient Allergies gadobutrol [From [facility]] Adverse Reaction (Mild, Verified 09/09/24 09:17) NAUSEA & VOMITING Tobacco use date assessed: 09/09/24 Dental Screening Dental Screen Date: 11/11/23 [facility], [facility] Medical History Hx of hiatal hernia History of diverticulosis History of kidney stones Anxiety Sciatica, unspecified side Surgical History Hx of colonoscopy History of esophagogastroduodenoscopy (EGD) History of colectomy History of inguinal hernia repair History of appendectomy Family History Father Diabetes Hypertension Mother Depression Paranoid schizophrenia Mental health disorder Brother Colon cancer, Onset Age: 56 Other Substance use disorder Social History Housing: House Are you a primary in home caregiver to a significant other at home: No Do you presently have visiting nurse or other home services: No Alcohol intake: current Alcohol intake frequency: holidays/special occasions only Comment: once Q 3 months 2 beers Patient Tobacco Use Status: Former Tobacco user Tobacco use type: Cigarette Years Smoked: stopped 1999 e-Cigarette/Vaping Use: Never Used Second Hand Smoke Exposure: No service: No Current occupational status: employed Current occupational exposures/hazards: No Cognitive needs: No Hearing needs: No Vision needs: Yes (Glasses) Questionnaire Thrive Questionnaire Date Thrive assessed: 11/11/23 ELISSA-7 AMB Questionnaire ELISSA-7 Date ELISSA - 7 assessed: 11/11/23 Source: Developed by Drs. Juan Luis Melton, Jessica Acosta, Varghese Verma and colleagues, with an educational anu from [employer]. Physical exam (Primary Care) Vital Signs: Last Vital Signs Pulse 66 09/09/24 09:17 BP 140/76 H 09/09/24 09:17 Pulse Ox 99 09/09/24 09:17 Oxygen Delivery Method Room Air 09/09/24 09:17 BMI result Body Mass Index 29.2 Tobacco/Smoking Status: Tobacco use Status Tobacco use date assessed 09/09/24 09/09/24 09:22 Patient Tobacco Use Status Former Tobacco user 09/09/24 09:22 Tobacco use type Cigarette 09/09/24 09:22 e-Cigarette/Vaping Use Never Used 09/09/24 09:22 Thrive Assessment: Date of Thrive Assessment Date Thrive assessed 11/11/23 09/09/24 09:22 Office Procedures Flu Questionnaire Does the patient have a severe egg allergy?: No Does the patient have severe life threatening allergies?: No Does the patient have a fever or illness today?: No Has the patient ever had Guillain-Martin Syndrome?: No Has the patient ever had any past reaction to a flu shot?: No Immunizations Fluarix Triv [id number] (PF) 45 mcg (15 mcg x 3)/0.5 mL IM syringe Performing Provider: Garcia Johns MD [facility] Administered by: LEANA Black on 09/09/24 10:09 Dose Route Admin Location Dispensed Lot Number Expiration Date NDC Professor Of Legal Studies 0.5 mL IM Left Deltoid 0.5 mL [id number] 03/29/25 92830-905-06 [facility] Given Date VIS Provided VIS Publication Date 09/09/24 Single Vaccine 21 Eligibility Eligibility Date Funding Source Not [facility] Eligible 09/09/24 Private Coding Level of Care Code Est Pt Level 4 (41905) Complex EM visit Add On G2211 Diagnoses Low back pain M54.50 Assessment & Plan Assessment & Plan (1) Low back pain: Code(s): M54.50 - Low back pain, unspecified Plan: History of Present Illness The patient is a 58-year-old male presenting with acute low back pain. The pain began on the preceding Saturday, initially described as very mild but subsequently developed into a sharp sensation located on the lower right side. The patient denies any falls or injuries associated with the onset of the pain. He reports difficulty bending forward, such as when tying his shoes, which exacerbates the pain. The patient noted that the pain was severe enough to prevent him from wearing regular shoes, opting instead for slippers, which is atypical for him. He has experienced similar back pain in the past, but it resolved spontaneously, and he cannot recall the exact timeline. Previously, he managed the pain with high-dose ibuprofen and a muscle relaxer. He attempted treatment with meloxicam, approximately 15 mg, but reported no significant relief. The pain has been persistent and intense, prompting his current visit. He denies associated symptoms such as trouble urinating, fevers, or chills. Social History - Employment: Works in building maintenance and machine repairing. - Current functional status: Limited ability to perform activities involving bending due to back pain. Review of Systems - Musculoskeletal: Reports exacerbation of pain with bending forward. - Genitourinary: Denies urinary difficulties. - Constitutional: Denies fevers or chills. Physical Exam General: Cooperative and healthy appearing Nutritional Appearance: Well nourished Orientation/consciousness: Patient oriented x3 Limitations: No limitations Head: Normal to inspection General: Appearance normal, both eyes and all related structures Neck: Normal visual inspection Chest: Normal palpation of entire chest wall Respiratory: Normal respiratory effort Neurology: Patient oriented x3 Results Plan - Acute Low Back Pain: Prescribed an increased dosage of anti-inflammatory medication. Switched from meloxicam 15 mg to a higher dose of 800 mg ibuprofen to be taken three times daily as needed for pain management. - Muscle Spasm: Recommended a muscle relaxant to be taken at bedtime if working, or up to twice daily if not working. Patient was informed and verbally consented to the use of an ambient scribe for clinic note documentation during this visit. Discussion Notes I discussed with the patient that his symptoms are consistent with muscle spasm contributing to acute low back pain. We reviewed the importance of taking the prescribed medication as directed to manage inflammation and muscle tension. I explained the rationales for changing the anti-inflammatory medication to ibuprofen at a higher dose, addressing the limited relief from the previously prescribed meloxicam. The patient consented to the medication plan and agreed to trial the new regimen. I also provided a work note to excuse him from duties today and tomorrow, emphasizing rest and avoiding activities that exacerbate his symptoms. We discussed administering a flu shot, and the patient agreed to receive it during the visit. Anticipatory guidance was given regarding the expected improvement, but I advised returning if symptoms persist or worsen. Patient Instructions - Take ibuprofen 800 mg three times daily for pain relief. - Use muscle relaxant at bedtime if working or up to twice daily if not working. - Rest and avoid activities that aggravate the pain, such as bending forward. - Follow the plan to receive a flu vaccination. - Follow up if pain does not improve or symptoms worsen, or for any new concerning symptoms. Orders: Orders Influenza [id number] Immunization Today Z23 - Encounter for immunization
[2024-09-09 09:17] VITALS: BP 140/76; PULSE 66; O2SAT 99; BMI 29.2
== END 2024-09-09 10:13 | disposition home or self-care (01) ==
PROVIDERS: PCP Internal Medicine; Visit Provider Internal Medicine
DX: Z23 Encounter for immunization (principal); M54.50 Low back pain, unspecified

== ENCOUNTER → 2024-09-09 09:13 | Outpatient (BNVA) | payer OTHER, SELFPAY | PROVIDERS: PCP Internal Medicine; Visit Provider Internal Medicine | DX: M54.50 Low back pain, unspecified (principal); M62.838 Other muscle spasm; Z23 Encounter for immunization | CPT/HCPCS: 90471; 90656 ==

== ENCOUNTER 2024-11-14 07:48 | Outpatient (REF) | payer OTHER, SELFPAY ==
[2024-11-14 08:00] LABS: MANUAL DIFF FLAG NO
[2024-11-14 08:34] LABS: Basophils Percent Auto 0.6 % (0-2); Eosinophils Absolute Auto 0.1 X10*3/uL (0.0-0.4); Eosinophils Percent Auto 1.2 % (0-4); Hematocrit 41.8 % (42.0-52.0); Hemoglobin 14.2 g/dl (14.0-18.0); Imm Gran Abs Auto 0.01 X10*3/uL (0.00-0.03); Imm Gran Pct Auto 0.1 % (0.0-0.4); Immature Retic Fraction 9.5 % (2.3-13.4); Lymphocytes Absolute Auto 2.2 X10*3/uL (1.2-4.9); Lymphocytes Percent Auto 32.1 % (20-40); Mean Corpuscular Hemoglobin 29.2 pg (27.0-33.0); Mean Platelet Volume 10.3 fL (9.4-12.4); Monocytes Absolute Auto 0.6 X10*3/uL (0.1-1.2); Monocytes Percent Auto 9.3 % (2-11); Neutrophils Absolute Auto 3.8 x10*3/uL (2.0-8.3); Neutrophils Percent Auto 56.7 % (45-73); Platelet Count 242 X10*3/uL (160-400); Red Blood Count 4.86 X10*6/uL (4.60-5.80); Red Cell Distribution Width 12.8 % (11.0-16.0); Retic HGB Equivalent 30.5 pg (30.0-35.0); Reticulocytes Absolute 0.047 X10*6/uL (0.026-0.095); White Blood Count 6.8 X10*3/uL (4.8-10.8)
[2024-11-14 08:44] LABS: Estimated Average Glucose 123 mg/dL; Hemoglobin A1C 148.6631 umol/L; Hemoglobin A1c % 5.9 % (<6.0); Total Hemoglobin (HGBA1C) 3613.3655 umol/L
[2024-11-14 09:04] LABS: Bacteria Urine None Seen (None Seen); Hyaline Casts Urine 0-2 /LPF (0-2); WBC Urine 0-5 /HPF (0-5)
[2024-11-14 09:11] LABS: Appearance Urine Clear; Color Urine Yellow; PH 5.5 (5.0-9.0)
[2024-11-14 09:12] LABS: Glucose Urine UA Negative (Negative); Leukocyte Esterase Urine Negative (Negative); Nitrite Urine Negative (Negative); Specific Gravity - Urine > 1.030 (1.005-1.025); UMIC TRIGGER UA YES; Urine Blood Moderate (2+) (Negative); Urine Ketones Trace mg/dL (Negative); Urine Protein Trace mg/dL (Neg-Trace)
[2024-11-14 09:21] LABS: Alanine Aminotransferase 26 U/L (0-40); Albumin Level 4.3 g/dL (3.5-5.0); Alkaline Phosphatase 54 U/L (39-117); Anion Gap 11 (12-20); Aspartate Amino Transferase 28 U/L (5-37); Bilirubin Total 0.4 mg/dL (0.0-1.0); Blood Urea Nitrogen 9 mg/dL (9-16); Calcium 9.1 mg/dL (8.4-10.2); Carbon Dioxide 26 mmol/L (22-29); Chloride 107 mmol/L (96-108); Cholesterol 123 mg/dL (<200); Estimated Glomerular Filt Rate > 60; Glucose Random 109 mg/dL (60-115); HDL Cholesterol 37 mg/dL (>40); Iron 33 mcg/dL (45-160); LDL Cholesterol Calculated 61 mg/dL (<100); Percent Iron Saturation 13 % (15-50); Potassium 4.4 mmol/L (3.3-5.1); Sodium 140 mmol/L (135-145); Total Iron Binding Capacity 246 mcg/dL (228-428); Total Protein 7.8 g/dL (6.5-8.0); Triglycerides 126 mg/dL (<150); Unsaturated Iron Binding 213 ug/dL
[2024-11-14 09:38] LABS: Ferritin 707 ng/mL (20-250); Free T4 (Free Thyroxine) 0.97 ng/dL (0.71-1.85); Thyroid Stimulating Hormone 2.24 uIU/mL (0.32-4.0)
[2024-11-14 09:47] LABS: Folate 14.8 ng/mL (> or = 4.0); Prostate Specific Antigen Scr 0.28 ng/mL (<0.05-4.0); Vitamin B12 447 pg/mL (200-900)
== END 2024-11-14 07:49 | disposition home or self-care (01) ==
LOC: HO.LAB 07:48
PROVIDERS: PCP Internal Medicine; Visit Provider Internal Medicine
DX: R73.01 Impaired fasting glucose (principal); E78.00 Pure hypercholesterolemia, unspecified; Z12.5 Encounter for screening for malignant neoplasm of prostate
CPT/HCPCS: 36415; 80053; 80061; 81001; 82607; 82728; 82746; 83036; 83540; 84153; 84439; 84443; 85025; 85045

== ENCOUNTER 2024-11-16 17:20 | Outpatient (AMB) | payer OTHER, SELFPAY ==
--- NOTE | 2024-11-16 17:28 | A.OFFPC_ITS ---
Vital Signs 11/16/24 17:36 Height 5 ft 6 in Weight 178 lb BMI 28.7 BP 134/80 Blood Pressure Location Lt brachial Position Sitting Pulse 68 Pulse Source Pulse Oximeter Pulse Oximetry (%) 98 Oxygen Delivery Method Room Air Intake Visit Reasons: PE Intake Note: Patient here for a physical exam Stri[employer]pa[employer] Apprentice Required: No Accompanied by: Self / Same As Patient Allergies gadobutrol [From [facility]] Adverse Reaction (Mild, Verified 11/16/24 17:41) NAUSEA & VOMITING Medication List - Last Reconciled 11/16/24 by Rohan Wynn MD multivitamin 1 tab PO DAILY omeprazole magnesium (Prilosec OTC) 20 mg PO DAILY PRN Tobacco use date assessed: 11/16/24 Dental Screening Dental Screen Date: 11/16/24 Did you have a dental visit in the last 12 months?: Yes Did you have a dental problem in the last 6 months where you did not have access to dental care?: No Was dental information given to patient?: Patient has dentist HPI PE HPI Details The patient is a 58-year-old male presenting for a physical examination with concerns about blood pressure and a recent finding of hematuria. The patient has a history of generalized anxiety disorder, managed in the past with citalopram, which he ceased using approximately a year ago. He also has a diagnosis of gastroesophageal reflux disease (GERD), managed with omeprazole taken as needed. Erectile dysfunction is another chronic issue. In terms of recent medical history, the patient was seen in an urgent care setting in August for low back pain and was treated with ibuprofen and a muscle relaxer. The back pain has since resolved. Regarding lab work, the patient previously had iron deficiency, but current tests indicate normal hemoglobin levels of 14.2 with adequate iron stores. Currently, the patient is experiencing hematuria, which is a new development, and there is no previous history of kidney stones recorded recently. The patient admits to fasting blood sugar levels of 109 mg/dL and a recent hemoglobin A1c increase from 5.5 to 5.9, indicating pre-diabetes. - Blood pressure monitoring - Colonoscopy up to date as of 2020 - Fasting blood sugar checked; currently elevated at 109 mg/dL - Hemoglobin A1c checked; recent reading of 5.9 - Renal function, liver function, choles terol (LDL of 61), and PSA are within normal limits - Annual check-up on prostate health - Ultrasound for kidney evaluation due t o hematuria scheduled - Flu vaccination administered - Encouraged dietary management to preve nt diabetes and sustain controlled GERD - Advised on adequate hydration to possi manda prevent kidney stones - Occasional alcohol consumption: averag es two to three beers or glasses of wine per month - No current tobacco use - No recreational drug use - Multivitamin and omeprazole listed as current supplements - Family history of colon cancer (brothe r) - Constitutional: Reports flu-like sympt oms recently; no current fever or new infections - Respiratory: Denies shortness of breat h - Cardiovascular: Denies chest pain; occ asional increase in blood pressure - Gastrointestinal: Reports persistent h eartburn managed with omeprazole - Genitourinary: Reports frequent nightt nuno urination (up to two times) - Neurological: Denies dizziness, loss o f consciousness; reports hearing test completed three years ago - Musculoskeletal: No current complaints after resolving low back pain - Hematologic: Denies current symptoms o f anemia - Labs: Normal CBC; hemoglobin 14.2, fas ting blood sugar 109 mg/dL, hemoglobin A1c 5.9%, low free iron but normal iron stores - Renal function, liver function, choles terol, and PSA all within normal limits - Urine: Presence of hematuria noted PFSH Medical History Hx of hiatal hernia History of diverticulosis History of kidney stones Anxiety Sciatica, unspecified side Surgical History Hx of colonoscopy History of esophagogastroduodenoscopy (EGD) History of colectomy History of inguinal hernia repair History of appendectomy Family History Father Diabetes Hypertension Mother Depression Paranoid schizophrenia Mental health disorder Brother Colon cancer, Onset Age: 56 Other Substance use disorder Social History (Updated 11/16/24 @ 17:48 by Rohan Wynn MD) Housing: House Are you a primary healthcare administrative assistant to a significant other at home: No Do you presently have visiting nurse or other home services: No Alcohol intake: current Alcohol intake frequency: holidays/special occasions only Comment: once Q month 2-3 beers Patient Tobacco Use Status: Former Tobacco user Tobacco use type: Cigarette Years Smoked: stopped 1999 e-Cigarette/Vaping Use: Never Used Second Hand Smoke Exposure: No service: No Current occupational status: employed Current occupational exposures/hazards: No Cognitive needs: No Hearing needs: No Vision needs: Yes (Glasses) Questionnaire PHQ-9 Over the last 2 weeks, how often have you been bothered by any of the following problems? 1. Little interest or pleasure in doing things: not at all 2. Feeling down, depressed, or hopeless: not at all 3. Trouble falling or staying asleep, or sleeping too much: not at all 4. Feeling tired or having little energy: several days 5. Poor appetite or overeating: not at all 6. Feeling bad about yourself - or that you are a failure or have let yourself or your family down: not at all 7. Trouble concentrating on things, such as reading the newspaper or watching television: not at all 8. Moving or speaking so slowly that other people could have noticed. Or the opposite - being so fidgety or restless that you have been moving around a lot more than usual: not at all 9. Thoughts that you would be better off or of hurting yourself in some way: not at all Total score: 1 Source: Developed by Drs. Juan Luis Melton, Jessica Acosta, Varghese Verma and colleagues, with an educational anu from [employer]. Thrive Questionnaire Date Thrive assessed: 11/16/24 I am a: Patient What is your living situation today?: I have a steady place to live Within the past 12 months, did the food you bought not last and you didn't have the money to get more?: Never true Within the past 12 months, did you worry whether your food would run out before you got money to buy more?: Never true Do you have trouble paying for medicines?: No Do you have trouble getting transportation to medical appointments?: No Do you have trouble paying your heating and electricity bill?: No Do you have trouble taking care of your child, family member or friend?: No Do you have trouble with day-to-day activities such as bathing, preparing meals, shopping, managing finances, etc.?: No Are you currently unemployed and looking for a job?: Yes Are you interested in more education?: No Please select the resources that you would like help with: None Currently or been in a relationship where the following occur: I choose not to answer THRIVE Score: 0 AUDIT C Alcohol Use Questionnaire (AUDIT-C) 1. How often do you have a drink containing alcohol?: 2-4 times a month 2. How many drinks containing alcohol do you have on a typical day when you are drinking?: 3 or 4 3. How often do you have six or more drinks on one occasion?: Never Total Score: 3 ELISSA-7 AMB Questionnaire ELISSA-7 Date ELISSA - 7 assessed: 11/16/24 Feeling nervous, anxious, or on edge: 0 = Not at all Not being able to stop or control worryin = Not at all Worrying too much about different things: 0 = Not at all Trouble relaxin = Not at all Being so restless that it is hard to sit still: 0 = Not at all Becoming easily annoyed or irritable: 0 = Not at all Feeling afraid as if something awful might happen: 0 = Not at all Total ELISSA-7 score (0-4 normal; 5-9 mild; 10-14 moderate; 15-21 severe): 0 Source: Developed by Drs. Juan Luis Melton, Jessica Acosta, Varghese Verma and colleagues, with an educational anu from [employer]. Review of Systems Const Denies poor appetite and Denies weakness Eyes Denies no additional complaints ENT Reports Normal hearing present, Denies dizziness, Denies nasal congestion, Denies tinnitus and Denies sore throat Card Denies chest pain, Denies syncope, Denies rapid heart rate and Denies dyspnea Resp Denies cough and Denies dyspnea GI Denies change in stool character, Reports constipation, Denies diarrhea, Denies nausea and Denies vomiting Denies dysuria and Denies urinary frequency Neuro Reports Normal hearing present, Denies confusion, Denies dizziness, Denies syncope and Denies weakness Psych Denies confusion Physical exam (Primary Care) Vital Signs: Last Vital Signs Pulse 68 11/16/24 17:36 BP 134/80 11/16/24 17:36 Pulse Ox 98 11/16/24 17:36 Oxygen Delivery Method Room Air 11/16/24 17:36 BMI result Body Mass Index 28.7 Tobacco/Smoking Status: Tobacco use Status Tobacco use date assessed 09/09/24 11/16/24 17:32 Patient Tobacco Use Status Former Tobacco user 11/16/24 17:32 Tobacco use type Cigarette 11/16/24 17:32 e-Cigarette/Vaping Use Never Used 11/16/24 17:32 PHQ-9: PHQ-9 Score PHQ-9: Total score 1 11/16/24 17:32 Thrive Assessment: Date of Thrive Assessment Date Thrive assessed 11/16/24 11/16/24 17:32 Currently or been in a relationship where the following occur: I choose not to answer Const General: No confusion Orientation/consciousness: No confusion HENMT Head: Yes normocephalic Ears: external ears normal and TM's normal bilaterally Face and sinus: Yes normal facial exam Mouth: moist mucous membranes Throat: Yes tonsils normal Eyes Conjunctivae: conjunctivae normal Pupils: Equal, round and reactive pupils present and Pupil accommodation reflex normal Direct Ophthalmoscopy: normal light reflex Neck Neck: No lymphadenopathy Thyroid: Thyroid normal Chest Chest palpation & inspection: normal inspection of the chest Resp Effort & Inspection: normal respiratory effort and no audible wheezes Auscultation: clear to auscultation bilaterally, no crackles, no wheezes and lung sounds not diminished Cardio Rate: regular rate Rhythm: regular rhythm Peripheral pulses: radial pulses present and dorsalis pedis present GI Other: guaiac negative prostate N Palpation (GI): no masses Auscultation: normal bowel sounds and normoactive bowel sounds Male General Exam: Yes normal external exam Skin General skin exam: no rashes or lesions noted Rashes: no rashes Neuro General: No confusion Cranial nerves: Yes Equal, round and reactive pupils present and Yes Normal hearing present Cognition (Neuro): normal cognition Gait exam (Neuro): Normal gait present Motor exam (neuro): 5/5 motor strength present throughout Deep tendon reflexes (DTR's): Right brachioradialis reflex intensity grade: 2+, Left brachioradialis reflex intensity grade: 2+, Right patellar reflex intensity grade: 2+ and Left patellar reflex intensity grade: 2+ Extrem General: No edema Coding Level of Care Code Est Pt Prev Care 40-64y(65175) Diagnoses Annual physical exam Z00.00 ELISSA (generalized anxiety disorder) F41.1 GERD (gastroesophageal reflux disease) K21.9 Overweight (BMI 25.0-29.9) E66.3 Impaired fasting blood sugar R73.01 Iron deficiency anemia D50.9 Hearing deficit H91.90 Hematuria R31.9 Assessment & Plan Assessment & Plan (1) Annual physical exam: Code(s): Z00.00 - Encounter for general adult medical examination without abnormal findings Category: Medical Plan: Patient is advised to eat healthy, keep well hydrated, keep active and have adequate sleep. (2) ELISSA (generalized anxiety disorder): Comment: decline counselling 01/2022 Code(s): F41.1 - Generalized anxiety disorder Category: Medical Plan: resolved (3) GERD (gastroesophageal reflux disease): Code(s): K21.9 - Gastro-esophageal reflux disease without esophagitis Category: Medical Plan: Avoid the foods that causes that usually spicy foods, tomato products, juices, coffee, soda and foods that your sensitive to. After eating do not lie down, allow 3-4 hours before in lie down. And keep the head of bed above 30 degrees to avoid the acid from going up. (4) Overweight (BMI 25.0-29.9): Code(s): E66.3 - Overweight Category: Medical Plan: Diet and exercise (5) Impaired fasting blood sugar: Code(s): R73.01 - Impaired fasting glucose Category: Medical Plan: Decrease the amount of carbohydrate intake, pasta, bread, rice and potatoes are all sugar and that is aside from all the sweet stuff, remember that fruits are good but they are Sweet also. (6) Iron deficiency anemia: Code(s): D50.9 - Iron deficiency anemia, unspecified Category: Medical Plan: Advised to continue monitoring iron and hold of any iron intake. (7) Hearing deficit: Code(s): H91.90 - Unspecified hearing loss, unspecified ear Category: Medical (8) Hematuria: Code(s): R31.9 - Hematuria, unspecified Category: Medical Plan - Monitor fasting blood sugar and hemoglobin A1c closely for diabetes risk management. - Continue current treatment with omeprazole, monitor GERD symptoms. - Engage in lifestyle modifications to maintain healthy cholesterol levels. - Schedule and perform an abdominal ultrasound to investigate hematuria. - Monitor iron levels through follow-up blood tests in a few months. - Advise on reducing candy intake and engaging in dietary management to curb pre-diabetes and support GERD. - Follow up on renal health and potential kidney stones based on ultrasound results. - Review alcohol consumption during future visits if digestive issues persist. During the visit, we discussed the elevated fasting blood sugar and increasing hemoglobin A1c, cautioning against developing diabetes. The patient was encouraged to modify his diet, particularly reducing sugar intake. The risks of potential kidney stones or other renal issues due to hematuria were reviewed, and an ultrasound was ordered to assess kidney health further. We also covered the need for ongoing monitoring of his medical conditions, including iron levels and potential anemia. The patient consented to these plans and understood the importance of dietary adjustments and hydration. - Follow a balanced diet with reduced sugar intake. - Continue taking omeprazole as needed for heartburn. - Drink plenty of water daily. - Monitor night-time urination and report any changes. - Follow up with ultrasound and blood work as planned. - Seek medical attention if hematuria persists or other new symptoms develop. - Keep an eye on blood pressure, reporting any significant changes. \ Orders: Orders H Pylori Breath Test Today K21.9 - Gastro-esophageal reflux disease without esophagitis US renal BI Today R31.9 - Hematuria, unspecified Ferritin 2 Months D50.9 - Iron deficiency anemia, unspecified IRON PROFILE 2 Months D50.9 - Iron deficiency anemia, unspecified Reticulocyte Count 2 Months D50.9 - Iron deficiency anemia, unspecified UA CC w/rflx Micro + Cult 2 Months D50.9 - Iron deficiency anemia, unspecified, R30.0 - Dysuria Complete Blood Count Auto Diff 2 Months D50.9 - Iron deficiency anemia, unspecified Vitamin B12 and Folate 2 Months D50.9 - Iron deficiency anemia, unspecified Hemoglobin A1c 2 Months D50.9 - Iron deficiency anemia, unspecified Comprehensive Met. Panel 2 Months D50.9 - Iron deficiency anemia, unspecified Referrals Speech and Hearing Referral H91.90 - Unspecified hearing loss, unspecified ear
[2024-11-16 17:36] VITALS: BP 134/80; PULSE 68; O2SAT 98; BMI 28.7
== END 2024-11-16 18:10 | disposition home or self-care (01) ==
PROVIDERS: PCP Internal Medicine; Visit Provider Internal Medicine
DX: Z00.00 Encounter for general adult medical examination without abnormal findings (principal); F41.1 Generalized anxiety disorder; K21.9 Gastro-esophageal reflux disease without esophagitis; E66.3 Overweight; R73.01 Impaired fasting glucose; D50.9 Iron deficiency anemia, unspecified; H91.90 Unspecified hearing loss, unspecified ear; R31.9 Hematuria, unspecified

== ENCOUNTER 2024-12-10 15:32 | Outpatient (REF) | payer OTHER, SELFPAY ==
--- NOTE | ~2024-12-10 | US_ITS ---
EXAMINATION: US KIDNEY BILATERAL HISTORY: R31.9 - Hematuria, unspecified TECHNIQUE: Real-time grayscale ultrasound imaging of the kidneys was performed and images were reviewed. COMPARISON: Correlation is made with an unenhanced CT of the abdomen and dated 06/21/2015. FINDINGS: Right kidney: The right kidney measures 10.4 x 5.1 x 5.3 cm. Renal parenchymal echotexture and thickness are normal. There are no masses. There is no hydronephrosis or renal calculi. Left Kidney: The left kidney measures 10.9 x 5.9 x 4.4 cm. Renal parenchymal echotexture and thickness are normal. There are no masses. There is no hydronephrosis or renal calculi. US/US renal BI IMPRESSION: Unremarkable renal ultrasound. Electronically signed by: Juan Luis Stiles MD 12/11/2024 07:44 AM EDT
--- OUTSIDE RECORDS SUMMARY | 2024-12-10 19:06 | XMS_ITS | Patient Health Record ---
Author Organization [facility] Address [address] [place] [address] Care Team Providers Care Group Manager Name Role Phone Po Rohan ALBA Primary Care Provider Juan Luis Pickard [phone] Reason For Referral No Information Medications Medication SIG (Take, Route, Frequency, Duration) Notes Start Date End Date Status MoviPrep 100 GM as directed Orally o nce for 1 dose 03/21/2012 Not-Taking Tylenol PRN Active Multivitamin Active Citalopram Hydrobromide Active hydrOXYzine HCl Acti ve Meloxicam Active Prilosec 20 MG 1 capsule Orally PRN Active Immunizations Vaccine Route Administration Date Status Comme nts Influenza Unknown 07/13/2020 Administered Problems Problem Type SNOMED Code ICD Code Onset Dates Problem Status W/U Status Risk Notes Problem Screening for malignant neoplasm of colon (951195961) Encounter for screening for malignant neoplasm of colon (Z12.11) Active confirmed Problem Preprocedural examination (920677405791764) Preprocedural examination (Z01.818) Active confirmed Problem Family History of Cancer of Colon (Situation) (432455529) Family history of colon cancer (Z80.0) Active confirmed Problem Gastroesophageal reflux disease (847119630) GERD (gastroesophagea l reflux disease) (K21.9) Active confirmed Plan Of Treatment Future Test Test Name Order Date UPPER GI ENDOSCOPY 11/23/2014 COLONOSCOPY 09/21/2020 Insurance Providers Payer Name Payer Address Payer Phone Subscriber Number Group Number Insured Name Patient Relationship to Insured Coverage Start Date Coverage End Date [employer] [facility] [address] [place] [address] [id number] MARYAM MAHARAJ Self - patient is the insured Medical (General) History Medical History History ICD Code Colonoscopy 03/2012--negative except for diverticulosis Diverticulitis in 2002, 2011 , and 2012--had a sigmoid resection in 08/2013 as below Denies GA,DM,CVA,Lung disease,renal dise ase Kidney stones EGD in 12/2014 negative except for a smal l hiatal hernia Anxiety Surgical History Surgery Date(Month/Year) Appendectomy 1975 Hernia surgery 2000 Sigmoid colon resection 08/2013-Dr. Navin anderson 2013
== END 2024-12-10 15:33 | disposition home or self-care (01) ==
LOC: HO.US 15:32
PROVIDERS: PCP Internal Medicine; Visit Provider Internal Medicine
DX: R31.9 Hematuria, unspecified (principal)
CPT/HCPCS: 76775

== ENCOUNTER → 2024-12-10 15:35 | Outpatient (BNV) | payer OTHER, SELFPAY | PROVIDERS: PCP Internal Medicine; Visit Provider Radiology Diagnostic Radiology | DX: R31.9 Hematuria, unspecified (principal) | CPT/HCPCS: 76775 ==

== ENCOUNTER → 2025-01-19 15:03 | Outpatient (BNVA) | payer OTHER, SELFPAY | PROVIDERS: PCP Internal Medicine; Visit Provider Physician Assistant Medical ==

== ENCOUNTER 2025-01-19 15:59 | Emergency (ER) | payer OTHER, SELFPAY ==
--- NOTE | ~2025-01-19 | CT_ITS ---
CLINICAL HISTORY: trauma CT head without contrast Comparison: None Findings: No intra-axial mass, midline shift or hydrocephalus. Reference coronal image 65 and axial image 34, there is a tiny focus of high density within the left caudate head. No significant atrophy-like change or white matter disease. The visualized paranasal sinuses and mastoid air cells are normal. The orbits are within normal limits. No skull fracture. IMPRESSION: Tiny focus of high density within the left caudate head seen best on coronal 65. While this may reflect a focal calcification, there are no comparison studies present and a tiny focus of hemorrhage can not be excluded. Follow-up CT within 24 hours to confirm stability. This document has been electronically signed by: Rajesh Mendez MD on 01/19/2025 19:56:32
--- NOTE | ~2025-01-19 | CT_ITS ---
CLINICAL HISTORY: fall and hit face CT maxillofacial without contrast Comparison: None Findings: No acute fractures. No dislocations. Temporomandibular joints are intact. Paranasal sinuses and mastoid air cells clear. Unremarkable orbital contents. Visualized intracranial contents are within normal limits. No foreign bodies. IMPRESSION: No evidence of facial bone fracture. This document has been electronically signed by: Rajesh Mendez MD on 01/19/2025 19:49:39
--- NOTE | ~2025-01-19 | CT_ITS ---
CLINICAL HISTORY: Fall, abnormal head CT. CT head without contrast Comparison: CT/SR - CT HEAD/BRAIN WO IV CON - 01/19/25 19:02 EDT Findings: The punctate hyperdense focus in the left caudate on the prior CT is faintly visible on the thin slice images and consistent with a calcification. There is no acute intracranial hemorrhage. Ventricles are of normal size and shape. No mass effect or midline shift is present. The johnson-white matter differentiation appears normal. The visualized portions of the orbits, paranasal sinuses, and mastoids are unremarkable. No fractures are identified. IMPRESSION: No acute intracranial abnormality. This document has been electronically signed by: David Bowie MD on 01/20/2025 02:36:19
--- NOTE | ~2025-01-19 | CT_ITS ---
CLINICAL HISTORY: Fall hit head CT cervical spine without contrast Comparison: None Findings: There is straightening of the normal cervical lordosis. No fracture or acute malalignment. Multilevel degenerative changes with disc space narrowing throughout the cervical spine. Prominent posterior osteophytes at C4 and C5 resulting in mass effect upon the thecal sac. The facet joints are normally imbricated. No prevertebral soft tissue edema. Lung apicies demonstrate no acute process. Impression: Multilevel degenerative changes without evidence of acute fracture or acute malalignment. This document has been electronically signed by: Rajesh Mendez MD on 01/19/2025 19:48:58
[2025-01-19 18:49] VITALS: BP 170/83; PULSE 62; RESP 16; TEMP 36.8; O2SAT 99; BMI 29.9
--- NOTE | 2025-01-19 18:55 | ED_ITS ---
HPI - General Adult General Chief complaint: Fall Stated complaint: Fall/head inj Time Seen by Provider: 01/19/25 21:45 Source: patient and family Mode of arrival: ambulatory Limitations: no limitations History of Present Illness ED Provider: DR. Garza HPI narrative: A 59-year-old male came in from work connection for evaluation of head injury, patient was at work when he missed a step causing him to fall down landing on his right side of the head hitting a metal machine, +LOC, and post fall dizziness, +leg pain, +right facial pain and swelling. Not taking AC. Related Data Home Medications ?Medication ?Instructions ?Recorded ?Confirmed multivitamin 1 tab PO DAILY 10/18/20 11/16/24 omeprazole magnesium 20 mg 20 mg PO DAILY PRN Acid Reflux 10/18/20 11/16/24 tablet,delayed release (Prilosec OTC) Allergies Allergy/AdvReac Type Severity Reaction Status Date / Time gadobutrol [From GADAVIST] AdvReac Mild NAUSEA & Verified 01/19/25 18:51 VOMITING Review of Systems Review of Systems: All other systems are reviewed and are negative Constitutional: Reports as per HPI and Reports no additional constitutional complaints Eyes: Reports as per HPI and Reports no additional eye complaints Reports system reviewed and no additional complaints, except as documented Cardiovascular: Reports as per HPI and Reports no additional cardiovascular complaints Respiratory: Reports as per HPI and Reports no additional respiratory complaints Gastrointestinal: Reports as per HPI and Reports no additional gastrointestinal complaints Genitourinary: Reports no additional female genitourinary complaints Musculoskeletal: Reports no additional musculoskeletal complaints Skin/Breast: Reports system reviewed and no additional complaints, except as docu Psychiatric: Reports no additional psychiatric complaints Endocrine: Reports no additional endocrine complaints Hematologic/Lymphatic: Reports no additional hematologic/lymphatic complaints Allergic/Immunologic: Reports no additional allergic/immunologic complaints Reports system reviewed and no additional complaints, except as documented and Reports Abnormal speech present PMFSH Past Medical History Medical History Hx of hiatal hernia History of diverticulosis History of kidney stones Anxiety Sciatica, unspecified side Surgical History Hx of colonoscopy History of esophagogastroduodenoscopy (EGD) History of colectomy History of inguinal hernia repair History of appendectomy Family History Family History Father Diabetes Hypertension Mother Depression Paranoid schizophrenia Mental health disorder Brother Colon cancer, Onset Age: 56 Other Substance use disorder Social History Social History Housing: House Are you a primary technical healthcare consultant to a significant other at home: No Do you presently have visiting nurse or other home services: No Alcohol intake: current Alcohol intake frequency: holidays/special occasions on ly Comment: once Q month 2-3 beers Patient Tobacco Use Status: Former Tobacco user Tobacco use type: Cigarette Years Smoked: stopped 1999 e-Cigarette/Vaping Use: Never Used Second Hand Smoke Exposure: No service: No Current occupational status: employed Current occupational exposures/hazards: No Cognitive needs: No Hearing needs: No Vision needs: Yes (Glasses) Physical Exam ED Vital Signs: Vital Signs - 24 hr 01/19/25 18:49 01/19/25 21:20 01/19/25 21:22 Temperature 98.2 F Pulse Rate 62 89 60 Respiratory Rate 16 12 16 Blood Pressure 170/83 H 136/76 138/72 Pulse Oximetry 99 97 Oxygen Delivery Method Room Air Room Air 01/19/25 22:32 01/19/25 23:59 01/20/25 01:43 Temperature 97.8 F 97.4 F 97.5 F Pulse Rate 58 62 64 Respiratory Rate 18 16 16 Blood Pressure 138/71 141/68 H 140/69 H Pulse Oximetry 99 98 97 Oxygen Delivery Method Room Air Room Air Room Air 01/20/25 03:14 Temperature 98.5 F Pulse Rate 68 Respiratory Rate 15 Blood Pressure 123/78 Pulse Oximetry 99 Oxygen Delivery Method Room Air BMI result Body Mass Index 29.9 Vital signs have been reviewed and appear to be correct. Blood pressure elevated. Heart rate normal. Respiratory rate normal. Temperature normal. Oxygen saturation normal. Appearance: Alert. Oriented X3. No acute distress. Head: Normal external exam. Normocephalic. Atraumatic. No Watkins signs noted. No raccoon eyes noted Eyes: PERRLA. EOMI. Conjunctiva and sclera normal. Eyelids normal. ENT: TM's Normal. Pharynx normal. Uvula midline. Moist mucous membranes. No trismus noted. No drooling noted. No muffled voice noted. Neck: Normal inspection. Neck supple. FROM. No adenopathy. Thyroid Normal. No meningeal signs. No neck mass noted. CVS: Normal heart rate and rhythm. Heart sound normal. No murmurs noted. Pulses normal throughout. Respiratory: No respiratory distress. Painless inspiration. Breath sounds normal. No wheezes/rales/rhonchi noted. Chest nontender. No accessory muscle usage noted or decreased air movement noted. Abdomen: Soft and nontender. Bowel sounds normal in all 4 quadrants. No distention noted. No organomegaly noted. No visible injury noted. Back: No CVA tenderness. Full range of motion noted. Skin: Skin warm and dry. Normal skin color. Normal skin turgor. No rashes/lesions/lacerations noted. Extremities: No lower extremity edema. Extremities exhibit normal range of motion. Extremities nontender. Neuro: GCS of 15. Mental status: Normal attention, orientation, memory, and affect. Cranial nerves: Pupils are equal, round and reactive to light, EOMI, visual [place] are fall, face is symmetric, facial sensations are normal. Motor examination normal muscle tone, strength to 4 extremities. DTR are +2, planter's are flexor. Sensory exam; normal coordination, no ataxia, gait stable. Cerebellar exam: [id number] and [id number] is normal. Extrapyramidal system: No tremors, no rigidity with normal facial expressions. Pronator drift not present Course Course Course Narrative: RME: 59-year-old male presents to ED for right facial jaw pain. Patient fell at work hit the right side of his head and face onto object. Patient denies any loss of consciousness. Patient is sent from were connected evaluation. No obvious signs of blunt trauma was sent for imaging of the head neck and face Reevaluation(s) Reevaluation #1: Normal neuro exam, GCS of 15, questionable abnormal head CT, will keep the patient for 6 hours in the emergency department pain repeat the 1st CT head within 6 hours if it remained stable will admit the patient for observation for 2nd CT head within 24 hours. Case discussed with Dr. Pedro, patient and family in agreement for the plan. Time: 22:08 Reevaluation #2: Neuro exam is intact, GCS of 15, repeat head CT reveals the following:The punctate hyperdense focus in the left caudate on the prior CT is faintly visible on the thin slice images and consistent with a calcification. There is no acute intracranial hemorrhage. Ventricles are of normal size and shape. No mass effect or midline shift is present. The johnson-white matter differentiation appears normal. The visualized portions of the orbits, paranasal sinuses, and mastoids are unremarkable. No fractures are identified. Therefore patient can be discharged home. Time: 02:52 Medical Decision Making Differential Diagnosis Differential Diagnoses: The differential diagnosis associated with the presentation includes (Intracranial bleed, facial fracture, cervical spine injury, extremity injury, chest injury, abdominal injury, back injury, serial neuro exam.) Admission/Observation Consideration of admission/observation: Escalation of care including admission/observation considered Consult Healthcare Provider Management of the patient was discussed with: Hospitalist (Dr. Babb) Independent Interpretation I performed an independent interpretation of an: CT Scan (Head/facial/C- spine:Tiny focus of high density within the left caudate head seen best on coronal 65. While this may reflect a focal calcification, there are no comparison studies present and a tiny focus of hemorrhage can not be excluded. Follow-up CT within 24 hours to confirm stability.) Radiology Impression Discussion of test interpretation with radiology: I have reviewed the radiologist's reading. Discharge Plan Discharge Clinical Impression: Fall, Closed head injury Patient Disposition: Home, Self-Care Instructions: Head Injury (ED) Prescriptions: No Action multivitamin Tablet 1 tab PO DAILY omeprazole magnesium [Prilosec OTC] 20 mg Tablet,Delayed Release (Dr/Ec) 20 mg PO DAILY PRN (Reason: Acid Reflux) Referrals: Po,Rohan Olivas MD [Primary Care Provider] - Stand Alone Forms: Work/School Release Interventions: ED Discharge Assessment Last Done: 01/20/25 03:14 Discharge Date/Time: 01/20/25 03:15 Print Language: Danish
[2025-01-19 21:20] VITALS: BP 136/76; PULSE 89; RESP 12
[2025-01-19 21:22] VITALS: BP 138/72; PULSE 60; RESP 16; O2SAT 97
--- NOTE | 2025-01-19 22:15 | PC.NURSE ---
hospitalist at bedside discussing care with pt. 18G placed in left ac, pt changed into gown.
[2025-01-19 22:32] VITALS: BP 138/71; PULSE 58; RESP 18; TEMP 36.6; O2SAT 99
[2025-01-19 23:59] VITALS: BP 141/68; PULSE 62; RESP 16; TEMP 36.3; O2SAT 98
[2025-01-20 01:43] VITALS: BP 140/69; PULSE 64; RESP 16; TEMP 36.4; O2SAT 97
[2025-01-20 03:14] VITALS: BP 123/78; PULSE 68; RESP 15; TEMP 36.9; O2SAT 99
== END 2025-01-20 03:15 | disposition home or self-care (01) ==
PROVIDERS: Emergency Provider Emergency Medicine; PCP Internal Medicine
DX: S09.90XA Unspecified injury of head, initial encounter (principal); R51.9 Headache, unspecified; M79.604 Pain in right leg; M54.2 Cervicalgia; W10.9XXA Fall (on) (from) unspecified stairs and steps, initial encounter; Y93.9 Activity, unspecified; Y92.9 Unspecified place or not applicable; Y99.8 Other external cause status; Z87.891 Personal history of nicotine dependence; Z79.899 Other long term (current) drug therapy
CPT/HCPCS: 70450; 70486; 72125; 99284

== ENCOUNTER → 2025-01-19 18:54 | Outpatient (BNV) | payer OTHER, SELFPAY | PROVIDERS: PCP Internal Medicine; Visit Provider Radiology Vascular & Interventional Radiology | DX: M50.30 Other cervical disc degeneration, unspecified cervical region (principal); S09.90XA Unspecified injury of head, initial encounter | CPT/HCPCS: 70450; 70486; 72125 ==

== ENCOUNTER → 2025-01-20 01:00 | Outpatient (BNV) | payer OTHER, SELFPAY | PROVIDERS: Emergency Provider Emergency Medicine; PCP Internal Medicine; Visit Provider Radiology Diagnostic Radiology | DX: S09.90XA Unspecified injury of head, initial encounter (principal) | CPT/HCPCS: 70450 ==

== ENCOUNTER 2025-01-26 15:32 | Outpatient (REF) | payer OTHER, SELFPAY | END 2025-01-26 15:33 | disposition home or self-care (01) | LOC: HO.SH 15:32 | PROVIDERS: Visit Provider Internal Medicine | DX: Z01.118 Encounter for examination of ears and hearing with other abnormal findings (principal); H90.3 Sensorineural hearing loss, bilateral | CPT/HCPCS: 92557; 92567 ==

== ENCOUNTER 2025-02-06 08:28 | Outpatient (REF) | payer OTHER, SELFPAY ==
[2025-02-06 08:45] LABS: MANUAL DIFF FLAG NO
[2025-02-06 09:52] LABS: Estimated Average Glucose 117 mg/dL; Hemoglobin A1c % 5.7 % (<6.0); Total Hemoglobin (HGBA1C) 3591.8763 umol/L
[2025-02-06 10:12] LABS: Basophils Absolute Auto 0.1 X10*3/uL (0.0-0.2); Eosinophils Absolute Auto 0.1 X10*3/uL (0.0-0.4); Eosinophils Percent Auto 2.4 % (0-4); Hematocrit 38.3 % (42.0-52.0); Hemoglobin 13.5 g/dl (14.0-18.0); Imm Gran Abs Auto 0.01 X10*3/uL (0.00-0.03); Imm Gran Pct Auto 0.2 % (0.0-0.4); Immature Retic Fraction 9.5 % (2.3-13.4); Lymphocytes Absolute Auto 2.5 X10*3/uL (1.2-4.9); Lymphocytes Percent Auto 41.9 % (20-40); Mean Corpuscular HGB Conc 35.2 g/dl (31.0-36.0); Mean Corpuscular Hemoglobin 29.3 pg (27.0-33.0); Mean Corpuscular Volume 83.3 fL (80.0-98.0); Mean Platelet Volume 10.9 fL (9.4-12.4); Monocytes Absolute Auto 0.5 X10*3/uL (0.1-1.2); Neutrophils Absolute Auto 2.7 x10*3/uL (2.0-8.3); Neutrophils Percent Auto 46.5 % (45-73); Platelet Count 273 X10*3/uL (160-400); Red Cell Distribution Width 12.6 % (11.0-16.0); Retic HGB Equivalent 33.7 pg (30.0-35.0); Reticulocyte Percent 1.6 % (0.5-1.8); Reticulocytes Absolute 0.072 X10*6/uL (0.026-0.095); White Blood Count 5.9 X10*3/uL (4.8-10.8)
[2025-02-06 10:13] LABS: Appearance Urine Clear; Color Urine Yellow; Glucose Urine UA Negative (Negative); Leukocyte Esterase Urine Negative (Negative); Nitrite Urine Negative (Negative); Specific Gravity - Urine 1.015 (1.005-1.025); UMIC TRIGGER UACC YES; Urine Blood Small (1+) (Negative); Urine Ketones Negative (Negative); Urine Protein Negative (Neg-Trace)
[2025-02-06 10:25] LABS: Alanine Aminotransferase 30 U/L (0-40); Albumin Level 4.2 g/dL (3.5-5.0); Alkaline Phosphatase 53 U/L (39-117); Anion Gap 13 (12-20); Aspartate Amino Transferase 26 U/L (5-37); Bilirubin Total 0.8 mg/dL (0.0-1.0); Blood Urea Nitrogen 13 mg/dL (9-16); Calcium 8.9 mg/dL (8.4-10.2); Carbon Dioxide 22 mmol/L (22-29); Chloride 109 mmol/L (96-108); Estimated Glomerular Filt Rate > 60; Glucose Random 96 mg/dL (60-115); Iron 133 mcg/dL (45-160); Percent Iron Saturation 48 % (15-50); Potassium 4.2 mmol/L (3.3-5.1); Sodium 140 mmol/L (135-145); Total Iron Binding Capacity 278 mcg/dL (228-428); Unsaturated Iron Binding 145 ug/dL
[2025-02-06 10:28] LABS: Bacteria Urine None Seen (None Seen); Hyaline Casts Urine 0-2 /LPF (0-2); RBC Urine 0-2 /HPF (0-2); Squamous Epithelial Cell Urine 0-2 /HPF (0-2); WBC Urine 0-5 /HPF (0-5)
[2025-02-06 10:41] LABS: Ferritin 448 ng/mL (20-250)
[2025-02-06 10:48] LABS: Folate 13.7 ng/mL (> or = 4.0); Vitamin B12 437 pg/mL (200-900)
== END 2025-02-06 08:29 | disposition home or self-care (01) ==
LOC: HO.LAB 08:28
PROVIDERS: PCP Internal Medicine; Visit Provider Internal Medicine
DX: D50.9 Iron deficiency anemia, unspecified (principal); Z13.1 Encounter for screening for diabetes mellitus
CPT/HCPCS: 36415; 80053; 81001; 81003; 82607; 82728; 82746; 83036; 83540; 85025; 85045

== ENCOUNTER 2025-02-15 16:47 | Outpatient (AMB) | payer OTHER, SELFPAY ==
--- NOTE | 2025-02-15 16:57 | MHC.PC.OV ---
Vital Signs 02/15/25 17:10 Height 5 ft 5 in Weight 178 lb 6 oz BMI 29.7 BP 132/72 Blood Pressure Location Lt brachial Position Sitting Pulse 78 Pulse Source Pulse Oximeter Temp 97 F Temp Source Temporal Artery Scan Pulse Oximetry (%) 98 Oxygen Delivery Method Room Air Intake Visit Reasons: IGT, hematuria Allergies gadobutrol [From GADAVIST] Adverse Reaction (Mild, Verified 01/19/25 18:51) NAUSEA & VOMITING Medication List - Last Reconciled 02/15/25 by Rohan Wynn MD loratadine (Claritin) 10 mg PO DAILY multivitamin 1 tab PO DAILY omeprazole magnesium (Prilosec OTC) 20 mg PO DAILY PRN Tobacco use date assessed: 11/16/24 Dental Screening Dental Screen Date: 11/16/24 [facility] Medical History Hx of hiatal hernia History of diverticulosis History of kidney stones Anxiety Sciatica, unspecified side Surgical History Hx of colonoscopy History of esophagogastroduodenoscopy (EGD) History of colectomy History of inguinal hernia repair History of appendectomy Family History Father Diabetes Hypertension Mother Depression Paranoid schizophrenia Mental health disorder Brother Colon cancer, Onset Age: 56 Other Substance use disorder Social History Housing: House Are you a primary elderly caregiver to a significant other at home: No Do you presently have visiting nurse or other home services: No Alcohol intake: current Alcohol intake frequency: holidays/special occasions only Comment: once Q month 2-3 beers Patient Tobacco Use Status: Former Tobacco user Tobacco use type: Cigarette Years Smoked: stopped 1999 e-Cigarette/Vaping Use: Never Used Second Hand Smoke Exposure: No service: No Current occupational status: employed Current occupational exposures/hazards: No Cognitive needs: No Hearing needs: No Vision needs: Yes (Glasses) Questionnaire Thrive Questionnaire Date Thrive assessed: 11/16/24 I am a: Patient What is your living situation today?: I have a steady place to live Within the past 12 months, did the food you bought not last and you didn't have the money to get more?: Never true Within the past 12 months, did you worry whether your food would run out before you got money to buy more?: Never true Do you have trouble paying for medicines?: No Do you have trouble getting transportation to medical appointments?: No Do you have trouble paying your heating and electricity bill?: No Do you have trouble taking care of your child, family member or friend?: No Do you have trouble with day-to-day activities such as bathing, preparing meals, shopping, managing finances, etc.?: No Are you currently unemployed and looking for a job?: Yes Are you interested in more education?: No Please select the resources that you would like help with: None Currently or been in a relationship where the following occur: I choose not to answer THRIVE Score: 0 ELISSA-7 AMB Questionnaire ELISSA-7 Date ELISSA - 7 assessed: 11/16/24 Source: Developed by Drs. Juan Luis Melton, Jessica Acosta, Varghese Verma and colleagues, with an educational anu from [employer]. Physical exam (Primary Care) Vital Signs: Last Vital Signs Temp 97 F 02/15/25 17:10 Pulse 78 02/15/25 17:10 BP 132/72 02/15/25 17:10 Pulse Ox 98 02/15/25 17:10 Oxygen Delivery Method Room Air 02/15/25 17:10 BMI result Body Mass Index 29.7 Tobacco/Smoking Status: Tobacco use Status Tobacco use date assessed 11/16/24 02/15/25 16:57 Patient Tobacco Use Status Former Tobacco user 02/15/25 16:57 Tobacco use type Cigarette 02/15/25 16:57 e-Cigarette/Vaping Use Never Used 02/15/25 16:57 Thrive Assessment: Date of Thrive Assessment Date Thrive assessed 11/16/24 02/15/25 16:57 Currently or been in a relationship where the following occur: I choose not to answer Const General: alert; No acute distress Eyes Conjunctivae: conjunctivae normal Resp Auscultation: clear to auscultation bilaterally Cardio Rate: regular rate Rhythm: regular rhythm GI Inspection: Yes normal to inspection Extrem General: Yes normal to inspection and No edema Results AMB Urinalysis, Automated UA Leukoctes 0 Milagros/uL Last Edit by Dee Dee Neff, A on 02/15/25 17:41 UA Nitrite Negative Last Edit by Dee Dee Neff, A on 02/15/25 17:41 UA Urobilinogen 0 mg/dL Last Edit by Dee Dee Neff, A on 02/15/25 17:41 UA Protein 0 mg/dL Last Edit by Dee Dee Neff, A on 02/15/25 17:41 UA pH 6.0 Last Edit by Dee Dee Neff, RMA on 02/15/25 17:41 UA Blood 1 Rodney/uL Last Edit by Dee Dee Neff, RMA on 02/15/25 17:41 UA Specific Artemas 1.030 Last Edit by Dee Dee Neff, A on 02/15/25 17:41 UA Ketone Negative Last Edit by Dee Dee Neff, A on 02/15/25 17:41 UA Bilirubin 0 mg/dL Last Edit by Dee Dee Neff, A on 02/15/25 17:41 UA Glucose 0 mg/dL Last Edit by Dee Dee Neff, A on 02/15/25 17:41 Results Reviewed Results Reviewed: Laboratory Last Values Urine pH (Auto) 6.0 02/15/25 17:40 Specific Artemas (Auto) 1.030 02/15/25 17:40 Urine Protein (Auto) 0 mg/dL 02/15/25 17:40 Glucose (UA)(Auto) 0 mg/dL 02/15/25 17:40 Urine Ketones (Auto) Negative 02/15/25 17:40 Urine Blood (Auto) 1 Rodney/uL 02/15/25 17:40 Urine Nitrite (Auto) Negative 02/15/25 17:40 Urine Bilirubin (Auto) 0 mg/dL 02/15/25 17:40 Urine Urobilinogen (Auto) 0 mg/dL 02/15/25 17:40 Leukocyte Esterase (Auto) 0 Milagros/uL 02/15/25 17:40 Coding Level of Care Code Est Pt Level 4 (26624) Diagnoses Hematuria R31.9 Traumatic head injury less than 3 months ago S09.90XA Impaired fasting blood sugar R73.01 GERD (gastroesophageal reflux disease) K21.9 ELISSA (generalized anxiety disorder) F41.1 Assessment & Plan Assessment & Plan (1) Hematuria: Code(s): R31.9 - Hematuria, unspecified Category: Medical Plan: Ultrasound of the kidneys revealed negative results. (2) Traumatic head injury less than 3 months ago: Code(s): S09.90XA - Unspecified injury of head, initial encounter Category: Medical Plan: Patient has gone to work infection. (3) Impaired fasting blood sugar: Code(s): R73.01 - Impaired fasting glucose Category: Medical Plan: Decrease the amount of carbohydrate intake, pasta, bread, rice and potatoes are all sugar and that is aside from all the sweet stuff, remember that fruits are good but they are Sweet also. (4) GERD (gastroesophageal reflux disease): Code(s): K21.9 - Gastro-esophageal reflux disease without esophagitis Category: Medical Plan: Avoid the foods that causes that usually spicy foods, tomato products, juices, coffee, soda and foods that your sensitive to. After eating do not lie down, allow 3-4 hours before in lie down. And keep the head of bed above 30 degrees to avoid the acid from going up. (5) ELISSA (generalized anxiety disorder): Comment: decline counselling 01/2022 Code(s): F41.1 - Generalized anxiety disorder Category: Medical Plan: Stable Plan History of Present Illness The patient is a 59-year-old male presenting with a follow-up visit for ongoing medical management and review of recent test results. He has a history of generalized anxiety disorder and deficiency anemia, which has persisted over several years, with recent blood tests in January 2025 demonstrating stable hemoglobin levels of 12, 13, and 13.5. There is also a noted history of rectal dysfunction. In December 2024, the patient sustained a head injury following a fall, resulting in loss of consciousness and a diagnosis of a mild concussion. An episode of hematuria led to an ultrasound of the kidneys, revealing no significant findings. In terms of diabetes management, the patient's hemoglobin A1c improved from 5.9 to 5.7. The patient's current medications include omeprazole and multivitamins. Previous lipid profile results from October remain satisfactory, while his kidney function has shown favorable outcomes. The patient continues to deny any noteworthy changes in bowel movements and maintains regular dietary intake. Health Maintenance - Blood sugar management with improvement from a hemoglobin A1c of 5.9 to 5.7 - Cholesterol levels tested in October were reportedly satisfactory - Kidney function and previous ultrasounds after the incident of hematuria were unremarkable Social History - Current medication regimen involves omeprazole and multivitamins - Regular dietary intake with no significant dietary changes reported - Asked specifically about functioning well at work with no mention of current occupation details Review of Systems - Neurological: Reports episodes of loss of consciousness due to a fall, mild concussion, and occasional headaches - Genitourinary: Reports hematuria, denies current dysuria or urgency - Endocrine: Denies significant symptoms, reports improvement in blood sugar control - Gastrointestinal: Denies changes in bowel movements and dietary intake Physical Exam Results - Labs: Hemoglobin levels of 12, 13, 13.5; hemoglobin A1c improved to 5.7; normal cholesterol levels from October - Tests and Diagnostics: Ultrasound of kidneys was unremarkable Plan 1. 9 to 5.7. The patient only takes omeprazole and multivitamins, suggesting lifestyle adjustments may have contributed to these changes.: Patient was informed and verbally consented to the use of an ambient scribe for clinic note documentation during this visit. Discussion Notes I discussed with the patient that his anemia is presently stable as evidenced by recent lab results, with continued observation advised. Regarding his December 2024 head injury, I explained that his symptoms align with mild concussion management, focusing on symptomatic relief and monitoring for any abnormal changes. For his generalized anxiety disorder, I reminded him to monitor for any changes in his condition and that no new medication is indicated currently. His episode of hematuria has improved, supported by unremarkable ultrasound results, and I recommended ongoing surveillance. Diabetes management, however, showed improvement in blood glucose control. I emphasized the importance of maintaining this through lifestyle measures. Follow-up is planned for additional blood work and urine analysis as required should symptoms persist or worsen. Patient Instructions - Continue with your current medications: omeprazole and multivitamins. - Observe and note any new or recurring symptoms of headache or changes in consciousness related to your prior head injury. - Monitor dietary intake and maintain your current nutrition habits. - Watch for any recurrence of hematuria and seek consultation if observed. - Maintain regular blood sugar checks and keep up with lifestyle changes that have improved your hemoglobin A1c. Orders: Orders Ferritin 8 Months D64.9 - Anemia, unspecified IRON PROFILE 8 Months D64.9 - Anemia, unspecified Hemoglobin A1c 8 Months D64.9 - Anemia, unspecified Vitamin B12 and Folate 8 Months D64.9 - Anemia, unspecified Prostate Specific Antigen Scr 8 Months D64.9 - Anemia, unspecified AMB Urinalysis Automated Today R31.9 - Hematuria, unspecified, Z13.9 - Encounter for screening, unspecified Complete Blood Count Auto Diff 8 Months D64.9 - Anemia, unspecified Comprehensive Met. Panel 8 Months D64.9 - Anemia, unspecified Lipid Panel 8 Months D64.9 - Anemia, unspecified, E78.00 - Pure hypercholesterolemia, unspecified Free T4 (Free Thyroxine) 8 Months D64.9 - Anemia, unspecified Thyroid Stimulating Hormone 8 Months D64.9 - Anemia, unspecified Referrals Urology Referral R31.9 - Hematuria, unspecified
[2025-02-15 17:10] VITALS: BP 132/72; PULSE 78; TEMP 36.1; O2SAT 98; BMI 29.7
== END 2025-02-15 17:53 | disposition home or self-care (01) ==
LOC: HO.HMCH 16:48
PROVIDERS: PCP Internal Medicine; Visit Provider Internal Medicine
DX: R31.9 Hematuria, unspecified (principal); S09.90XA Unspecified injury of head, initial encounter; R73.01 Impaired fasting glucose; K21.9 Gastro-esophageal reflux disease without esophagitis; F41.1 Generalized anxiety disorder; Z13.9 Encounter for screening, unspecified

== ENCOUNTER → 2025-02-15 16:47 | Outpatient (BNVA) | payer OTHER, SELFPAY | PROVIDERS: PCP Internal Medicine; Visit Provider Internal Medicine | DX: R31.9 Hematuria, unspecified (principal); R73.01 Impaired fasting glucose; K21.9 Gastro-esophageal reflux disease without esophagitis; F41.1 Generalized anxiety disorder; S09.90XA Unspecified injury of head, initial encounter; X58.XXXA Exposure to other specified factors, initial encounter; Y93.9 Activity, unspecified; Y92.9 Unspecified place or not applicable; Y99.9 Unspecified external cause status | CPT/HCPCS: 81003 ==

== ENCOUNTER 2025-05-05 14:36 | Outpatient (AMB) | payer OTHER, SELFPAY ==
--- NOTE | 2025-05-05 14:38 | A.OFFVIS_ITS ---
Intake Visit Reasons: Hematuria Intake Note: New Patient is present for Hematuria Urology Rx:none Blood Thinners:none Imaging completed:12/10/24 Ultrasound Java Portal Developer Required: No Accompanied by: Self / Same As Patient Allergies gadobutrol (From GADAVIST) Adverse Reaction (Mild, Verified 05/05/25 14:46) NAUSEA & VOMITING HPI Comments Details: The patient is a 59-year-old male presenting with microscopic hematuria identified during a routine physical examination. Hematuria was detected on a dipstick test, with no visible blood observed by the patient. Ultrasound results were normal. The patient experiences occasional urinary hesitancy, linked to benign prostatic hyperplasia. A cystoscopy 14 years ago showed no significant findings. Aspirin use was co nsidered a potential cause of hematuria. The patient has ceased smoking 20 years ago and reports no significant chemical exposure at work. Urinary Symptoms Review - Microscopic hematuria detected on dipstick test at PCP but not today - Occasional urinary hesitancy with intermittent symptoms Results - Ultrasound: Normal results - Urinalysis: Microscopic hematuria detected on dipstick at PCP but not today Repeat UA 12 months PFSH Medical History Hx of hiatal hernia History of diverticulosis History of kidney stones Anxiety Sciatica, unspecified side Surgical History Hx of colonoscopy History of esophagogastroduodenoscopy (EGD) History of colectomy History of inguinal hernia repair History of appendectomy Family History Father Diabetes Hypertension Mother Depression Paranoid schizophrenia Mental health disorder Brother Colon cancer, Onset Age: 56 Other Substance use disorder Social History Housing: House Are you a primary out of school hours care worker to a significant other at home: No Do you presently have visiting nurse or other home services: No Alcohol intake: current Alcohol intake frequency: holidays/special occasions only Comment: once Q month 2-3 beers Patient Tobacco Use Status: Former Tobacco user Tobacco use type: Cigarette Years Smoked: stopped 1999 e-Cigarette/Vaping Use: Never Used Second Hand Smoke Exposure: No service: No Current occupational status: employed Current occupational exposures/hazards: No Cognitive needs: No Hearing needs: No Vision needs: Yes (Glasses) Review of Systems Const Denies chills and Denies fever(s) Card Reports no additional complaints and Denies syncope Resp Denies cough GI Denies abdominal pain and Denies heartburn Reports as per HPI and Denies change in libido Neuro Denies syncope Psych Denies change in libido Endo Denies change in libido Physical Exam Const General: cooperative, healthy appearing, comfortable and no acute distress Orientation/consciousness: patient oriented x3 HEENT Face and sinus: Yes normal facial exam Mouth: moist mucous membranes Neck Neck: Yes normal visual inspection, Yes full ROM and Yes trachea midline Chest Chest palpation & inspection: normal inspection of the chest Resp Effort & Inspection: normal respiratory effort, able to speak in complete sentences and no respiratory distress GI Inspection: Yes normal to inspection Back/Spine/Pelvis Cervical Spine: normal cervical lordosis Thoracic/Lumbar Spine: thoracic and lumbar spine normal to inspection Skin General skin exam: no rashes or lesions noted Neuro General: patient oriented x3, gait normal, tone normal and moves all extremities Extrem General: Yes normal to inspection and Yes capillary refill normal Assessment & Plan Assessment & Plan (1) Microscopic hematuria: Code(s): R31.29 - Other microscopic hematuria Category: Medical Plan Plan Patient informed verbally consented to the use of an ambient scribe 1. Microscopic Hematuria - Annual follow-up to monitor hematuria persistence. 2. Benign Prostatic Hyperplasia - Monitor urinary symptoms and reassess if symptoms worsen. Discussion Notes I discussed with the patient that the microscopic hematuria detected on the dipstick test is likely related to benign prostatic hyperplasia. We reviewed the normal ultrasound results and the plan to monitor the hematuria with annual follow-ups. I advised that if the hematuria persists, further investigation such as a cystoscopy may be necessary. Patient Instructions - Return for annual follow-up to monitor urinary symptoms. - Report any new or worsening urinary symptoms to the clinic. Patient Instructions: This note is constructed using voice recognition software. While every effort h as been made to ensure accuracy band edger errors may have been included. Imaging studies, laboratory and physical exam results were discussed and reviewed in detail. No major barriers to patient understanding were identified. An opportunity to ask questions regarding the treatment plan was provided. All questions were answered. The patient expressed understanding and agreement with the above treatment plan. The patient is aware they should contact our office by phone for worsening of their current condition or the appearance of new urologic symptoms. Compliance is encouraged with any medications and followup testing that is ordered. It is a privilege to participate in the urologic care of your patient. If you have any questions or concerns regarding treatment for the above conditions, or other urologic issues, please do not hesitate to contact me. The office telephone contact is [phone]. Sincerely, Dr Zeb Dexter MD, [facility] - Urology Compassionate Specialist Care for the Genitourinary System Coding Level of Care Code New Pt Level 3 (51266) Diagnoses Microscopic hematuria R31.29
--- OUTSIDE RECORDS SUMMARY | 2025-05-05 15:02 | XMS_ITS | Patient Health Record ---
Author Organization [facility] Address [address] [place] [address] Care Team Providers Care Radiation Oncologist Name Role Phone Po Rohan ALBA Primary Care Provider Juan Luis Pickard [phone] Reason For Referral No Information Medications Medication [...] Problem Screening for malignant neoplasm of colon (091504770) Encounter for screening for malignant neoplasm of colon (Z12.11) Active confirmed Problem Preprocedural examination ([id number]) Preprocedural examination (Z01.818) Active confirmed Problem Family History of Cancer of Colon (Situation) (188639227) Family history of colon cancer (Z80.0) Active confirmed Problem Gastroesophageal reflux disease (307885721) GERD (gastroesophagea l reflux disease) (K21.9) Active confirmed Plan Of Treatment Future Test Test Name Order Date UPPER GI ENDOSCOPY 11/23/2014 COLONOSCOPY 09/21/2020 Insurance Providers Payer Name Payer Address Payer Phone Subscriber Number Group Number Insured Name Patient Relationship to Insured Coverage Start Date Coverage End Date [employer] OF [facility] [address] [place] [address] [id number] MARYAM MAHARAJ Self - patient is the insured Medical (General) History Medical History History ICD Code Colonoscopy 03/2012--negative except for diverticulosis Diverticulitis in 2002, 2011 , and 2012--had a sigmoid resection in 08/2013 as below Denies VA,DM,CVA,Lung disease,renal dise ase Kidney stones EGD in 12/2014 negative except for a smal l hiatal hernia Anxiety Surgical History Surgery Date(Month/Year) Appendectomy 1975 Hernia surgery 2000 Sigmoid colon resection 08/2013-Dr. Navin anderson 2013
== END 2025-05-05 15:13 | disposition home or self-care (01) ==
LOC: HO.HUSH 14:36
PROVIDERS: PCP Internal Medicine; Visit Provider Urology
DX: R31.29 Other microscopic hematuria (principal); R31.9 Hematuria, unspecified
CPT/HCPCS: 99203

== ENCOUNTER → 2025-05-05 14:36 | Outpatient (BNVA) | payer OTHER, SELFPAY | PROVIDERS: PCP Internal Medicine; Visit Provider Urology | DX: R31.29 Other microscopic hematuria (principal) | CPT/HCPCS: 81003 ==